=== PATIENT | female | born 1970 | race Two or more races ===

== ENCOUNTER 2020-10-14 18:22 | Observation (INO) | payer OTHER ==
[2020-10-14 18:45] VITALS: BMI 31.6
[2020-10-14 20:41] LABS: HEMATOCRIT 36.5 % (32.4-45.2); MCH 28.8 pg (25.7-33.7); MCHC 32.8 g/dl (32.0-36.0); MEAN CELL VOLUME 87.7 fl (80-96); MEAN PLT VOLUME 11.1 fl (7.5-11.1); PLATELET COUNT 173 K/MM3 (134-434); RBC 4.16 M/mm3 (3.60-5.2); RDW 13.1 % (11.6-15.6); WHITE BLOOD COUNT 6.7 K/mm3 (4.0-10.0)
[2020-10-14 21:07] LABS: CHLORIDE 105 mmol/L (98-107); POTASSIUM 3.8 mmol/L (3.5-5.1); SODIUM 140 mmol/L (136-145)
[2020-10-14 21:09] LABS: ALBUMIN 3.5 g/dl (3.4-5.0); ANION GAP 8 MMOL/L (8-16); BLOOD UREA NITROGEN 11.3 mg/dL (7-18); CALCIUM 9.2 mg/dL (8.5-10.1); CO2 27 mmol/L (21-32); GLUCOSE,RANDOM 92 mg/dL (74-106); MAGNESIUM 2.4 mg/dL (1.8-2.4)
[2020-10-14 21:12] LABS: CREATININE 0.6 mg/dL (0.55-1.3); SGOT/AST 17 U/L (15-37); SGPT/ALT 31 U/L (13-61)
[2020-10-14 21:14] LABS: BILIRUBIN,TOTAL 0.5 mg/dL (0.2-1); TOT PROT 7.1 g/dl (6.4-8.2)
[2020-10-14 21:15] LABS: ALK PHOS 125 U/L (45-117)
[2020-10-15 07:20] LABS: HEMATOCRIT 37.5 % (32.4-45.2); HEMOGLOBIN 12.6 GM/dL (10.7-15.3); MCH 29.5 pg (25.7-33.7); MCHC 33.6 g/dl (32.0-36.0); MEAN CELL VOLUME 87.8 fl (80-96); MEAN PLT VOLUME 11.5 fl (7.5-11.1); PLATELET COUNT 183 K/MM3 (134-434); RBC 4.27 M/mm3 (3.60-5.2); RDW 13.2 % (11.6-15.6); WHITE BLOOD COUNT 7.6 K/mm3 (4.0-10.0)
[2020-10-15 07:39] LABS: CHLORIDE 105 mmol/L (98-107); POTASSIUM 3.7 mmol/L (3.5-5.1); SODIUM 140 mmol/L (136-145)
[2020-10-15 07:45] LABS: ANION GAP 8 MMOL/L (8-16); BLOOD UREA NITROGEN 10.6 mg/dL (7-18); CALCIUM 8.7 mg/dL (8.5-10.1); CO2 27 mmol/L (21-32)
[2020-10-15 07:46] LABS: GLUCOSE,RANDOM 78 mg/dL (74-106); MAGNESIUM 2.4 mg/dL (1.8-2.4)
[2020-10-15 07:48] LABS: CREATININE 0.5 mg/dL (0.55-1.3)
[2020-10-15 08:04] LABS: LDL CHOLESTEROL (ONLY SJRH) 87 mg/dL (5-100)
[2020-10-15 08:05] LABS: CHOLESTEROL 196 mg/dL (50-200); HDL CHOLESTEROL 83 mg/dL (40-60)
[2020-10-15 08:06] LABS: TRIGLYCERIDES 99 mg/dL (0-150)
[2020-10-15] MEDS ORDERED: ASPIRIN COATED 81 MG TABLET.EC ONE (10:58)
[2020-10-15] MEDS: ASPIRIN COATED 81 MG TABLET.EC PO SCH (12:20)
[2020-10-15] MEDS ORDERED: ATORVASTATIN CA 20 MG TABLET (FP) PO SCH (22:00)
[2020-10-16] MEDS ORDERED: REGADENOSON 0.4 MG/5 ML PRE-FILLED SYRINGE IVPUSH ONE ×2 (09:30→10:49)
[2020-10-16 11:11] VITALS: BP 124/63; PULSE 59; TEMP 98.1
[2020-10-16] MEDS: ASPIRIN COATED 81 MG TABLET.EC PO SCH (13:39)
== END 2020-10-16 14:20 | disposition home or self-care (01) ==
LOC: JER 18:22 → INTOOBSV 21:04 → JERBED 21:04 → UNDOADMOB 21:04 → JERBED 22:51 → J4W 10-15 20:22 → JERBED 10-15 20:22 → J4W 10-15 20:22
PROVIDERS: ADMIT Hospitalist; ATTEND Family Medicine
PROC: 3E033GC Introduction of Other Therapeutic Substance into Peripheral Vein, Percutaneous Approach (ICD-10-PCS; principal; 2020-10-14)
DX: R55 Syncope and collapse (principal); R07.9 Chest pain, unspecified; E78.5 Hyperlipidemia, unspecified; K21.9 Gastro-esophageal reflux disease without esophagitis; J45.909 Unspecified asthma, uncomplicated; W18.39XA Other fall on same level, initial encounter; Y93.89 Activity, other specified; Y92.89 Other specified places as the place of occurrence of the external cause; S09.90XA Unspecified injury of head, initial encounter; E66.8 Other obesity; Z68.31 Body mass index [BMI] 31.0-31.9, adult; Z86.73 Personal history of transient ischemic attack (TIA), and cerebral infarction without residual deficits; I25.10 Atherosclerotic heart disease of native coronary artery without angina pectoris; I11.9 Hypertensive heart disease without heart failure
CPT/HCPCS: 36415; 70450-TC; 71046-TC-FY; 72125-TC; 78452-TC; 80048; 80053; 80061; 82550; 82553; 83721; 83735; 84443; 84484; 84703; 85027; 85379; 93005; 93010; 93017; 93306-TC; 93880-TC; 99285-25; A9502; C9803; G0378; J2785; U0003

== ENCOUNTER 2020-10-28 19:14 | Emergency (ER) | payer OTHER ==
[2020-10-28 19:19] VITALS: TEMP 98.1; BMI 31.3
[2020-10-28 21:12] LABS: URINE APPEARANCE CLEAR; URINE BILIRUBIN NEGATIVE (NEGATIVE); URINE COLOR YELLOW; URINE GLUCOSE (UA) NEGATIVE (NEGATIVE); URINE KETONE NEGATIVE (NEGATIVE); URINE LEUK ESTERASE NEGATIVE (NEGATIVE); URINE NITRITE NEGATIVE (NEGATIVE); URINE PROTEIN NEGATIVE (NEGATIVE); URINE UROBILINOGEN 0.2 mg/dL (0.2-1.0)
[2020-10-28 21:21] LABS: BASO % 0.4 % (0-2.0); EOS % 1.5 % (0-4.5); HEMATOCRIT 36.3 % (32.4-45.2); HEMOGLOBIN 12.2 GM/dL (10.7-15.3); LYMPH % 26.2 % (8-40); MCH 29.4 pg (25.7-33.7); MCHC 33.7 g/dl (32.0-36.0); MEAN CELL VOLUME 87.3 fl (80-96); MEAN PLT VOLUME 11.5 fl (7.5-11.1); MONO % 6.5 % (3.8-10.2); NEUT % 65.4 % (42.8-82.8); PLATELET COUNT 179 K/MM3 (134-434); RBC 4.16 M/mm3 (3.60-5.2); RDW 13.2 % (11.6-15.6); WHITE BLOOD COUNT 6.9 K/mm3 (4.0-10.0)
[2020-10-28 21:51] LABS: CHLORIDE 104 mmol/L (98-107); SODIUM 138 mmol/L (136-145)
[2020-10-28 21:53] LABS: ALBUMIN 3.7 g/dl (3.4-5.0)
[2020-10-28 21:55] LABS: ANION GAP 4 MMOL/L (8-16); BLOOD UREA NITROGEN 12.5 mg/dL (7-18); CO2 29 mmol/L (21-32); GLUCOSE,RANDOM 97 mg/dL (74-106)
[2020-10-28 21:57] LABS: CREATININE 0.7 mg/dL (0.55-1.3); SGOT/AST 18 U/L (15-37); SGPT/ALT 28 U/L (13-61)
[2020-10-28 21:58] LABS: BILIRUBIN,TOTAL 0.5 mg/dL (0.2-1); TOT PROT 7.4 g/dl (6.4-8.2)
[2020-10-28 21:59] LABS: ALK PHOS 122 U/L (45-117)
[2020-10-28 22:30] VITALS: BP 128/81; PULSE 66
== END 2020-10-28 22:35 | disposition home or self-care (01) ==
LOC: JER 19:14
DX: I10 Essential (primary) hypertension (principal)
CPT/HCPCS: 36415; 70450-TC; 80053; 81003; 84484; 84703; 85025; 93005; 93010; 99285-25

== ENCOUNTER 2020-11-15 11:44 | Observation (INO) | payer OTHER ==
[2020-11-15 12:08] VITALS: BMI 31.9
[2020-11-15 12:39] LABS: BASO % 0.3 % (0-2.0); EOS % 1.7 % (0-4.5); HEMATOCRIT 36.6 % (32.4-45.2); HEMOGLOBIN 12.3 GM/dL (10.7-15.3); LYMPH % 24.8 % (8-40); MCH 29.5 pg (25.7-33.7); MCHC 33.6 g/dl (32.0-36.0); MEAN CELL VOLUME 87.8 fl (80-96); MEAN PLT VOLUME 11.3 fl (7.5-11.1); MONO % 6.9 % (3.8-10.2); NEUT % 66.3 % (42.8-82.8); PLATELET COUNT 168 K/MM3 (134-434); RBC 4.17 M/mm3 (3.60-5.2); RDW 13.2 % (11.6-15.6); WHITE BLOOD COUNT 6.6 K/mm3 (4.0-10.0)
[2020-11-15 12:53] LABS: INR 1.05 (0.83-1.09); PROTHROMBIN TIME (PATIENT) 12.7 SEC (9.7-13.0)
[2020-11-15 12:56] LABS: ACTIVATED PTT 32.7 SECONDS (25.2-36.5); CHLORIDE 104 mmol/L (98-107); POTASSIUM 3.6 mmol/L (3.5-5.1); SODIUM 137 mmol/L (136-145)
[2020-11-15 12:58] LABS: ALBUMIN 3.6 g/dl (3.4-5.0); CALCIUM 9.1 mg/dL (8.5-10.1)
[2020-11-15 12:59] LABS: ANION GAP 7 MMOL/L (8-16); BLOOD UREA NITROGEN 15.6 mg/dL (7-18); CO2 27 mmol/L (21-32); GLUCOSE,RANDOM 87 mg/dL (74-106); MAGNESIUM 2.3 mg/dL (1.8-2.4)
[2020-11-15 13:02] LABS: CREATININE 0.6 mg/dL (0.55-1.3); PHOSPHOROUS 3.6 mg/dL (2.5-4.9); SGOT/AST 24 U/L (15-37); SGPT/ALT 40 U/L (13-61)
[2020-11-15 13:03] LABS: BILIRUBIN,TOTAL 0.8 mg/dL (0.2-1); TOT PROT 7.4 g/dl (6.4-8.2)
[2020-11-15 13:04] LABS: ALK PHOS 126 U/L (45-117)
[2020-11-15] MEDS ORDERED: ACETAMINOPHEN 325 MG TABLET (FP) PO PRN (16:54)
[2020-11-15] MEDS ORDERED: ATORVASTATIN CA 40 MG TABLET (FP) PO SCH (22:00)
[2020-11-15] MEDS ORDERED: HEPARIN NA (PORCINE) 5,000 UNITS/ML 1ML VIAL ONE (22:00)
[2020-11-15] MEDS ORDERED: ATORVASTATIN CA 40 MG TABLET (FP) ONE (22:00)
[2020-11-15] MEDS: HEPARIN NA (PORCINE) 5,000 UNITS/ML 1ML VIAL SQ SCH (22:07)
[2020-11-16 06:31] LABS: HEMATOCRIT 38.1 % (32.4-45.2); HEMOGLOBIN 13.1 GM/dL (10.7-15.3); MCH 29.8 pg (25.7-33.7); MCHC 34.2 g/dl (32.0-36.0); MEAN CELL VOLUME 87.2 fl (80-96); PLATELET COUNT 172 K/MM3 (134-434); RBC 4.38 M/mm3 (3.60-5.2); RDW 13.1 % (11.6-15.6); WHITE BLOOD COUNT 7.4 K/mm3 (4.0-10.0)
[2020-11-16 06:53] LABS: ALBUMIN 3.5 g/dl (3.4-5.0); BLOOD UREA NITROGEN 15.5 mg/dL (7-18); CALCIUM 9.3 mg/dL (8.5-10.1)
[2020-11-16 06:56] LABS: CREATININE 0.7 mg/dL (0.55-1.3)
[2020-11-16 06:57] LABS: BILIRUBIN,TOTAL 0.7 mg/dL (0.2-1); TOT PROT 7.4 g/dl (6.4-8.2)
[2020-11-16 07:23] VITALS: TEMP 96.7
[2020-11-16] MEDS ORDERED: RAMIPRIL 2.5 MG CAPSULE PO SCH (10:00)
[2020-11-16] MEDS ORDERED: metoPROLOL SUCCINATE 25 MG TAB.SR.24H (FP) PO SCH (10:00)
[2020-11-16] MEDS ORDERED: PANTOPRAZOLE 40 MG TABLET PO SCH (10:00)
[2020-11-16] MEDS ORDERED: ASPIRIN 81 MG CHEWABLE TABLETS PO SCH (10:00)
[2020-11-16] MEDS ORDERED: metoPROLOL SUCCINATE 25 MG TAB.SR.24H (FP) ONE (10:34)
[2020-11-16] MEDS ORDERED: ASPIRIN 81 MG CHEWABLE TABLETS ONE (10:34)
[2020-11-16] MEDS ORDERED: PANTOPRAZOLE 40 MG TABLET ONE (10:34)
[2020-11-16] MEDS ORDERED: HEPARIN NA (PORCINE) 5,000 UNITS/ML 1ML VIAL ONE (10:35)
[2020-11-16] MEDS: HEPARIN NA (PORCINE) 5,000 UNITS/ML 1ML VIAL SQ SCH (11:00)
[2020-11-16 11:10] VITALS: PULSE 67
[2020-11-16 15:30] VITALS: BP 122/69
== END 2020-11-16 15:35 | disposition home or self-care (01) ==
LOC: JER 11:44 → JERBED 14:18
PROVIDERS: ADMIT Family Medicine; ATTEND Family Medicine
PROC: 3E023GC Introduction of Other Therapeutic Substance into Muscle, Percutaneous Approach (ICD-10-PCS; principal; 2020-11-15)
DX: G45.9 Transient cerebral ischemic attack, unspecified (principal); I25.10 Atherosclerotic heart disease of native coronary artery without angina pectoris; R07.9 Chest pain, unspecified; E66.9 Obesity, unspecified; Z68.32 Body mass index [BMI] 32.0-32.9, adult; E78.5 Hyperlipidemia, unspecified; K21.9 Gastro-esophageal reflux disease without esophagitis; I11.9 Hypertensive heart disease without heart failure; Z86.73 Personal history of transient ischemic attack (TIA), and cerebral infarction without residual deficits; Z82.49 Family history of ischemic heart disease and other diseases of the circulatory system
CPT/HCPCS: 36415; 70450-TC; 70551-TC; 71045-TC-FY; 80053; 80061; 82550; 82553; 83036; 83721; 83735; 84100; 84443; 84484; 85025; 85027; 85610; 85730; 93005; 93010; 93880-TC; 99285-25; C9803; G0378; J1644; U0003; U0005

== ENCOUNTER 2020-11-30 23:39 | Emergency (ER) | payer OTHER ==
[2020-12-01 00:17] VITALS: BMI 32.3
[2020-12-01] MEDS ORDERED: MAG HYDROX/AL HYDROX/SIMETH 30 ML UNIT-DOSE CUP PO ONE (00:30)
[2020-12-01] MEDS ORDERED: FAMOTIDINE 20 MG TABLET PO ONE (00:31)
[2020-12-01] MEDS ORDERED: NYSTATIN POWDER 100,000 UNITS/GM - 15 GM TOPICAL POWDER TP ONE (00:36)
[2020-12-01] MEDS ORDERED: FAMOTIDINE 20 MG TABLET ONE (00:55)
[2020-12-01] MEDS ORDERED: MAG HYDROX/AL HYDROX/SIMETH 30 ML UNIT-DOSE CUP ONE (00:55)
[2020-12-01 01:16] LABS: BASO % 0.2 % (0-2.0); EOS % 1.6 % (0-4.5); HEMATOCRIT 34.8 % (32.4-45.2); HEMOGLOBIN 11.5 GM/dL (10.7-15.3); LYMPH % 33.3 % (8-40); MCH 28.8 pg (25.7-33.7); MEAN CELL VOLUME 87.2 fl (80-96); MEAN PLT VOLUME 11.5 fl (7.5-11.1); MONO % 8.1 % (3.8-10.2); NEUT % 56.8 % (42.8-82.8); PLATELET COUNT 158 K/MM3 (134-434); RBC 3.99 M/mm3 (3.60-5.2); RDW 13.3 % (11.6-15.6); WHITE BLOOD COUNT 6.9 K/mm3 (4.0-10.0)
[2020-12-01 01:34] LABS: CHLORIDE 105 mmol/L (98-107); SODIUM 139 mmol/L (136-145)
[2020-12-01 01:36] VITALS: BP 137/87; PULSE 67; TEMP 97.6
[2020-12-01 01:36] LABS: CALCIUM 8.9 mg/dL (8.5-10.1)
[2020-12-01 01:37] LABS: ALBUMIN 3.6 g/dl (3.4-5.0); ANION GAP 6 MMOL/L (8-16); BLOOD UREA NITROGEN 13.4 mg/dL (7-18); CO2 27 mmol/L (21-32); GLUCOSE,RANDOM 90 mg/dL (74-106); MAGNESIUM 2.2 mg/dL (1.8-2.4)
[2020-12-01 01:40] LABS: CREATININE 0.6 mg/dL (0.55-1.3); PHOSPHOROUS 4.5 mg/dL (2.5-4.9); SGOT/AST 23 U/L (15-37); SGPT/ALT 33 U/L (13-61)
[2020-12-01 01:42] LABS: BILIRUBIN,TOTAL 0.7 mg/dL (0.2-1)
[2020-12-01 01:43] LABS: ALK PHOS 107 U/L (45-117)
[2020-12-01 09:04] LABS: EPI CELLS 21 /uL (0-25.1); HYALINE CASTS 1 /uL (0-3.1); URINE APPEARANCE CLEAR; URINE BACTERIA 812 /uL (0-1359); URINE BILIRUBIN NEGATIVE (NEGATIVE); URINE COLOR YELLOW; URINE GLUCOSE (UA) NEGATIVE (NEGATIVE); URINE KETONE NEGATIVE (NEGATIVE); URINE LEUK ESTERASE NEGATIVE (NEGATIVE); URINE NITRITE NEGATIVE (NEGATIVE); URINE PROTEIN NEGATIVE (NEGATIVE); URINE RBC 5 /uL (0-23.9); URINE UROBILINOGEN 0.2 mg/dL (0.2-1.0); URINE WBC 8 /uL (0-25.8)
== END 2020-12-01 05:53 | disposition home or self-care (01) ==
LOC: JER 23:39
DX: K30 Functional dyspepsia (principal)
CPT/HCPCS: 36415; 71045-TC-FY; 80053; 81003; 82550; 82553; 83735; 84100; 84484; 85025; 87086; 93005; 93010; 99285-25; C9803; U0003; U0005

== ENCOUNTER 2020-12-18 17:38 | Emergency (ER) | payer OTHER ==
[2020-12-18 18:29] VITALS: BP 152/91; PULSE 72; TEMP 98.2; BMI 31.4
[2020-12-18] MEDS ORDERED: SODIUM CHLORIDE 0.9% 500 ML INFUS.BAG IV ONE (21:21)
[2020-12-18 21:37] LABS: BASO % 0.4 % (0-2.0); EOS % 1.3 % (0-4.5); HEMOGLOBIN 12.8 GM/dL (10.7-15.3); LYMPH % 24.5 % (8-40); MCH 29.1 pg (25.7-33.7); MCHC 32.9 g/dl (32.0-36.0); MEAN CELL VOLUME 88.3 fl (80-96); MEAN PLT VOLUME 11.7 fl (7.5-11.1); MONO % 5.7 % (3.8-10.2); NEUT % 68.1 % (42.8-82.8); PLATELET COUNT 162 K/MM3 (134-434); RBC 4.42 M/mm3 (3.60-5.2); RDW 13.6 % (11.6-15.6); WHITE BLOOD COUNT 7.9 K/mm3 (4.0-10.0)
[2020-12-18 22:26] LABS: ALBUMIN 3.7 g/dl (3.4-5.0); ALK PHOS 122 U/L (45-117); ANION GAP 7 MMOL/L (8-16); BILIRUBIN,TOTAL 0.7 mg/dL (0.2-1); BLOOD UREA NITROGEN 9.2 mg/dL (7-18); CALCIUM 8.8 mg/dL (8.5-10.1); CHLORIDE 104 mmol/L (98-107); CO2 28 mmol/L (21-32); CREATININE 0.7 mg/dL (0.55-1.3); GLUCOSE,RANDOM 83 mg/dL (74-106); SGOT/AST 30 U/L (15-37); SGPT/ALT 32 U/L (13-61); SODIUM 139 mmol/L (136-145); TOT PROT 7.9 g/dl (6.4-8.2)
== END 2020-12-19 00:12 | disposition home or self-care (01) ==
LOC: JER 17:38
DX: A04.72 Enterocolitis due to Clostridium difficile, not specified as recurrent (principal)
CPT/HCPCS: 36415; 71046-TC-FY; 74177-TC; 80053; 84484; 84703; 85025; 93005; 93010; 99285-25; C9803; Q9967; U0003; U0005

== ENCOUNTER 2021-01-07 00:31 | Emergency (ER) | payer OTHER ==
[2021-01-07 00:46] VITALS: TEMP 98.6; BMI 31.1
[2021-01-07 01:51] LABS: BASO % 0.3 % (0-2.0); EOS % 1.7 % (0-4.5); HEMATOCRIT 35.5 % (32.4-45.2); HEMOGLOBIN 11.6 GM/dL (10.7-15.3); LYMPH % 30.6 % (8-40); MCH 28.9 pg (25.7-33.7); MCHC 32.8 g/dl (32.0-36.0); MEAN CELL VOLUME 88.1 fl (80-96); MEAN PLT VOLUME 11.2 fl (7.5-11.1); MONO % 7.1 % (3.8-10.2); NEUT % 60.3 % (42.8-82.8); PLATELET COUNT 159 K/MM3 (134-434); RBC 4.02 M/mm3 (3.60-5.2); RDW 13.7 % (11.6-15.6)
[2021-01-07 02:31] LABS: ALBUMIN 3.4 g/dl (3.4-5.0); BLOOD UREA NITROGEN 21.9 mg/dL (7-18); CALCIUM 8.7 mg/dL (8.5-10.1)
[2021-01-07 02:34] LABS: CREATININE 0.6 mg/dL (0.55-1.3)
[2021-01-07 02:36] LABS: BILIRUBIN,TOTAL 0.5 mg/dL (0.2-1); TOT PROT 7.1 g/dl (6.4-8.2)
[2021-01-07 03:23] VITALS: BP 124/86; PULSE 73
== END 2021-01-07 03:31 | disposition home or self-care (01) ==
LOC: JER 00:31
DX: L29.9 Pruritus, unspecified (principal)
CPT/HCPCS: 36415; 80053; 85025; 99283-25

== ENCOUNTER 2021-02-12 11:23 | Inpatient (IN) | payer OTHER ==
[2021-02-12] MEDS ORDERED: LACTATED RINGERS SOLUTION 1000 ML INFUS.BAG IV ONE (11:55)
[2021-02-12] MEDS ORDERED: ACETAMINOPHEN 1000 MG/100 ML VIAL (NON FORMULARY) IVPB ONE (11:55)
[2021-02-12] MEDS ORDERED: ACETAMINOPHEN INJECTION 100 ML IVPB ONE (12:26)
[2021-02-12 12:47] LABS: BASO % 0.3 % (0-2.0); EOS % 2.2 % (0-4.5); HEMATOCRIT 38.3 % (32.4-45.2); HEMOGLOBIN 12.7 GM/dL (10.7-15.3); LYMPH % 26.9 % (8-40); MCH 28.8 pg (25.7-33.7); MCHC 33.1 g/dl (32.0-36.0); MEAN PLT VOLUME 10.5 fl (7.5-11.1); MONO % 8.3 % (3.8-10.2); NEUT % 62.3 % (42.8-82.8); PLATELET COUNT 158 10^3/uL (134-434); RDW 13.5 % (11.6-15.6); WHITE BLOOD COUNT 6.1 K/mm3 (4.0-10.0)
[2021-02-12 12:48] LABS: URINE APPEARANCE CLEAR; URINE BILIRUBIN NEGATIVE (NEGATIVE); URINE COLOR YELLOW; URINE GLUCOSE (UA) NEGATIVE (NEGATIVE); URINE KETONE NEGATIVE (NEGATIVE); URINE LEUK ESTERASE NEGATIVE (NEGATIVE); URINE NITRITE NEGATIVE (NEGATIVE); URINE PROTEIN NEGATIVE (NEGATIVE); URINE UROBILINOGEN 0.2 mg/dL (0.2-1.0)
[2021-02-12 12:54] LABS: INR 0.93 (0.83-1.09); PROTHROMBIN TIME (PATIENT) 11.5 SEC (9.7-13.0)
[2021-02-12 12:56] LABS: ACTIVATED PTT 30.9 SECONDS (25.2-36.5)
[2021-02-12 13:15] LABS: CHLORIDE 103 mmol/L (98-107); SODIUM 136 mmol/L (136-145)
[2021-02-12 13:18] LABS: CALCIUM 8.8 mg/dL (8.5-10.1); CHOLESTEROL 241 mg/dL (50-200)
[2021-02-12 13:20] LABS: ALBUMIN 3.7 g/dl (3.4-5.0); ANION GAP 5 MMOL/L (8-16); BLOOD UREA NITROGEN 13.7 mg/dL (7-18); CO2 29 mmol/L (21-32); GLUCOSE,RANDOM 76 mg/dL (74-106); LDL CHOLESTEROL (ONLY SJRH) 108 mg/dL (5-100); TRIGLYCERIDES 110 mg/dL (0-150)
[2021-02-12 13:21] LABS: HDL CHOLESTEROL 94 mg/dL (40-60)
[2021-02-12 13:22] LABS: CREATININE 0.5 mg/dL (0.55-1.3); SGOT/AST 52 U/L (15-37); SGPT/ALT 41 U/L (13-61)
[2021-02-12 13:24] LABS: TOT PROT 8.2 g/dl (6.4-8.2)
[2021-02-12 13:26] LABS: ALK PHOS 105 U/L (45-117)
[2021-02-12] MEDS: FAMOTIDINE 20 MG TABLET PO SCH (21:30)
[2021-02-12] MEDS: ATORVASTATIN CA 40 MG TABLET (FP) PO SCH (21:30)
[2021-02-12] MEDS: HEPARIN NA (PORCINE) 5,000 UNITS/ML 1ML VIAL SQ SCH (21:30)
[2021-02-13 01:04] VITALS: BMI 31.4
[2021-02-13 08:42] LABS: BASO % 0.3 % (0-2.0); EOS % 2.6 % (0-4.5); HEMATOCRIT 40.6 % (32.4-45.2); HEMOGLOBIN 13.3 GM/dL (10.7-15.3); MCH 28.6 pg (25.7-33.7); MCHC 32.7 g/dl (32.0-36.0); MEAN CELL VOLUME 87.6 fl (80-96); MEAN PLT VOLUME 10.1 fl (7.5-11.1); MONO % 7.6 % (3.8-10.2); NEUT % 61.5 % (42.8-82.8); PLATELET COUNT 168 10^3/uL (134-434); RBC 4.63 M/mm3 (3.60-5.2); RDW 13.5 % (11.6-15.6); WHITE BLOOD COUNT 4.9 K/mm3 (4.0-10.0)
[2021-02-13 08:53] LABS: CHLORIDE 104 mmol/L (98-107); SODIUM 138 mmol/L (136-145)
[2021-02-13 08:57] LABS: ALBUMIN 3.6 g/dl (3.4-5.0); ANION GAP 7 MMOL/L (8-16); BLOOD UREA NITROGEN 15.9 mg/dL (7-18); CO2 27 mmol/L (21-32); GLUCOSE,RANDOM 83 mg/dL (74-106); MAGNESIUM 2.6 mg/dL (1.8-2.4)
[2021-02-13 08:59] LABS: SGOT/AST 21 U/L (15-37); SGPT/ALT 32 U/L (13-61)
[2021-02-13 09:00] LABS: CREATININE 0.6 mg/dL (0.55-1.3)
[2021-02-13 09:01] LABS: BILIRUBIN,TOTAL 1.2 mg/dL (0.2-1); TOT PROT 7.4 g/dl (6.4-8.2)
[2021-02-13 09:03] LABS: ALK PHOS 101 U/L (45-117)
[2021-02-13] MEDS ORDERED: PT OWN MED DRAWER 7, Y5N ONE (09:43)
[2021-02-13] MEDS: metoPROLOL SUCCINATE 25 MG TAB.SR.24H (FP) PO SCH (10:12)
[2021-02-13] MEDS: RAMIPRIL 2.5 MG CAPSULE PO SCH (10:12)
[2021-02-13] MEDS: FAMOTIDINE 20 MG TABLET PO SCH ×2 (10:12→21:25)
[2021-02-13] MEDS: ASPIRIN COATED 81 MG TABLET.EC PO SCH (10:12)
[2021-02-13] MEDS: HEPARIN NA (PORCINE) 5,000 UNITS/ML 1ML VIAL SQ SCH ×2 (10:21→21:24)
[2021-02-13] MEDS: ATORVASTATIN CA 40 MG TABLET (FP) PO SCH (21:25)
[2021-02-14 07:05] VITALS: PULSE 65
[2021-02-14] MEDS ORDERED: PT OWN MED DRAWER 7, Y5N ONE (08:54)
[2021-02-14 10:27] VITALS: BP 127/74; TEMP 98.1
[2021-02-14] MEDS: ASPIRIN COATED 81 MG TABLET.EC PO SCH (10:27)
[2021-02-14] MEDS: FAMOTIDINE 20 MG TABLET PO SCH (10:27)
[2021-02-14] MEDS: RAMIPRIL 2.5 MG CAPSULE PO SCH (10:27)
[2021-02-14] MEDS: HEPARIN NA (PORCINE) 5,000 UNITS/ML 1ML VIAL SQ SCH (10:28)
[2021-02-14] MEDS: metoPROLOL SUCCINATE 25 MG TAB.SR.24H (FP) PO SCH (10:28)
== END 2021-02-14 13:39 | disposition home or self-care (01) | DRG 305 ==
LOC: JER 11:23 → JERBED 13:34 → OBSVTOIN 19:36 → J4S 20:56
PROVIDERS: ADMIT Family Medicine; ATTEND Family Medicine
DX: I16.0 Hypertensive urgency (principal); E78.5 Hyperlipidemia, unspecified; R20.0 Anesthesia of skin
CPT/HCPCS: 36415; 70450-TC; 71045-TC-FY; 80053; 80061; 81003; 82550; 82553; 83036; 83721; 83735; 84443; 84484; 85025; 85610; 85730; 86850; 86900; 86901; 93005; 93010; 99285-25; C9803; G0378; J0131; J1644; U0003; U0005

== ENCOUNTER 2021-03-12 17:27 | Emergency (ER) | payer OTHER ==
[2021-03-12 17:37] VITALS: BP 116/70; PULSE 78; TEMP 98; BMI 31.8
== END 2021-03-12 18:40 | disposition home or self-care (01) ==
LOC: JERFT 17:27 → JER 17:27 → JERFT 18:40
DX: L23.2 Allergic contact dermatitis due to cosmetics (principal)
CPT/HCPCS: 99281-25

== ENCOUNTER 2021-05-31 16:33 | Emergency (ER) | payer OTHER ==
[2021-05-31 16:39] VITALS: BP 117/67; PULSE 70; TEMP 98.8; BMI 33.0
[2021-05-31] MEDS ORDERED: KETOROLAC TROMETHAMINE 30 MG/1 ML VIAL IM ONE (17:09)
[2021-05-31] MEDS ORDERED: KETOROLAC TROMETHAMINE 30 MG/1 ML VIAL ONE (17:18)
== END 2021-05-31 17:35 | disposition home or self-care (01) ==
LOC: JERFT 16:33 → JER 16:33 → JERFT 17:35
PROC: 3E0233Z Introduction of Anti-inflammatory into Muscle, Percutaneous Approach (ICD-10-PCS; principal; 2021-05-31)
DX: H66.91 Otitis media, unspecified, right ear (principal)
CPT/HCPCS: 99284-25

== ENCOUNTER 2021-07-31 01:19 | Emergency (ER) | payer OTHER ==
[2021-07-31 01:41] VITALS: BP 118/75; PULSE 83; TEMP 97.8; BMI 33.2
[2021-07-31] MEDS ORDERED: ACETAMINOPHEN 1000 MG/100 ML VIAL IVPB ONE (02:15)
[2021-07-31] MEDS ORDERED: ACETAMINOPHEN INJECTION 100 ML IVPB ONE (02:41)
[2021-07-31 02:59] LABS: BASO % 0.4 % (0-2.0); EOS % 2.6 % (0-4.5); HEMATOCRIT 36.5 % (32.4-45.2); HEMOGLOBIN 12.1 GM/dL (10.7-15.3); LYMPH % 33.4 % (8-40); MCH 28.8 pg (25.7-33.7); MCHC 33.1 g/dl (32.0-36.0); MEAN PLT VOLUME 10.2 fl (7.5-11.1); MONO % 8.1 % (3.8-10.2); NEUT % 55.5 % (42.8-82.8); PLATELET COUNT 160 10^3/uL (134-434); RBC 4.19 M/mm3 (3.60-5.2); RDW 13.4 % (11.6-15.6)
[2021-07-31 03:18] LABS: CHLORIDE 106 mmol/L (98-107); SODIUM 141 mmol/L (136-145)
[2021-07-31 03:19] LABS: CALCIUM 8.6 mg/dL (8.5-10.1)
[2021-07-31 03:21] LABS: ALBUMIN 3.4 g/dl (3.4-5.0); ANION GAP 5 MMOL/L (8-16); BLOOD UREA NITROGEN 21.3 mg/dL (7-18); CO2 30 mmol/L (21-32); GLUCOSE,RANDOM 112 mg/dL (74-106); LIPASE 141 U/L (73-393)
[2021-07-31 03:23] LABS: CREATININE 0.7 mg/dL (0.55-1.3); SGOT/AST 24 U/L (15-37); SGPT/ALT 25 U/L (13-61)
[2021-07-31 03:25] LABS: BILIRUBIN,TOTAL 0.7 mg/dL (0.2-1); TOT PROT 7.3 g/dl (6.4-8.2)
[2021-07-31 03:26] LABS: ALK PHOS 117 U/L (45-117)
[2021-07-31] MEDS ORDERED: FAMOTIDINE 20 MG/50 ML IVPB 20 MG/50 ML MG IVPB ONE (03:53)
[2021-07-31] MEDS ORDERED: MAG HYDROX/AL HYDROX/SIMETH 30 ML UNIT-DOSE CUP PO ONE (03:53)
[2021-07-31] MEDS ORDERED: FAMOTIDINE 20 MG TABLET ONE (04:00)
[2021-07-31] MEDS ORDERED: FAMOTIDINE 20 MG TABLET PO ONE (04:00)
[2021-07-31] MEDS ORDERED: MAG HYDROX/AL HYDROX/SIMETH 30 ML UNIT-DOSE CUP ONE ×2 (04:00→06:47)
== END 2021-07-31 05:45 | disposition home or self-care (01) ==
LOC: JER 01:19
PROC: 3E0333Z Introduction of Anti-inflammatory into Peripheral Vein, Percutaneous Approach (ICD-10-PCS; principal; 2021-07-31)
DX: R10.33 Periumbilical pain (principal); K42.9 Umbilical hernia without obstruction or gangrene
CPT/HCPCS: 36415; 74177-TC; 80053; 83690; 84484; 85025; 93005; 93010; 99285-25; J0131

== ENCOUNTER 2021-08-23 18:01 | Emergency (ER) | payer OTHER ==
[2021-08-23 18:22] VITALS: BP 146/88; PULSE 95; TEMP 97.8; BMI 33.9
[2021-08-23] MEDS ORDERED: ACETAMINOPHEN 1000 MG/100 ML BAG IVPB ONE (22:10)
[2021-08-23] MEDS ORDERED: ACETAMINOPHEN INJECTION 100 ML IVPB ONE (22:38)
[2021-08-23] MEDS ORDERED: ACETAMINOPHEN 325 MG TABLET (FP) ONE (22:39)
[2021-08-23] MEDS ORDERED: ACETAMINOPHEN 500 MG TABLET (FP) PO ONE (22:41)
[2021-08-23 22:45] LABS: BASO % 0.5 % (0-2.0); EOS % 0.4 % (0-4.5); HEMATOCRIT 37.6 % (32.4-45.2); HEMOGLOBIN 12.2 GM/dL (10.7-15.3); LYMPH % 27.2 % (8-40); MCH 28.2 pg (25.7-33.7); MCHC 32.6 g/dl (32.0-36.0); MEAN CELL VOLUME 86.5 fl (80-96); MEAN PLT VOLUME 10.7 fl (7.5-11.1); MONO % 8.1 % (3.8-10.2); NEUT % 63.8 % (42.8-82.8); PLATELET COUNT 204 10^3/uL (134-434); RBC 4.34 M/mm3 (3.60-5.2); RDW 13.3 % (11.6-15.6); WHITE BLOOD COUNT 9.5 K/mm3 (4.0-10.0)
[2021-08-24 00:11] LABS: CHLORIDE 104 mmol/L (98-107); SODIUM 138 mmol/L (136-145)
[2021-08-24 00:14] LABS: ALBUMIN 3.5 g/dl (3.4-5.0); ANION GAP 8 MMOL/L (8-16); BLOOD UREA NITROGEN 13.6 mg/dL (7-18); CO2 27 mmol/L (21-32); GLUCOSE,RANDOM 106 mg/dL (74-106)
[2021-08-24 00:17] LABS: CREATININE 0.6 mg/dL (0.55-1.3); SGOT/AST 19 U/L (15-37); SGPT/ALT 29 U/L (13-61)
[2021-08-24 00:19] LABS: BILIRUBIN,TOTAL 0.6 mg/dL (0.2-1); TOT PROT 7.8 g/dl (6.4-8.2)
[2021-08-24 00:20] LABS: ALK PHOS 109 U/L (45-117)
== END 2021-08-24 03:10 | disposition home or self-care (01) ==
LOC: JER 18:01
DX: M54.50 Low back pain, unspecified (principal)
CPT/HCPCS: 36415; 71046-TC-FY; 80053; 82550; 82553; 84484; 85025; 93005; 93010; 99285-25

== ENCOUNTER 2021-10-14 17:12 | Emergency (ER) | payer OTHER ==
[2021-10-14 17:22] VITALS: TEMP 98.7; BMI 28.7
[2021-10-14 20:42] LABS: BASO % 0.6 % (0-2.0); EOS % 1.2 % (0-4.5); LYMPH % 25.5 % (8-40); MCH 29.1 pg (25.7-33.7); MCHC 33.3 g/dl (32.0-36.0); MEAN CELL VOLUME 87.3 fl (80-96); MEAN PLT VOLUME 11.6 fl (7.5-11.1); MONO % 5.1 % (3.8-10.2); NEUT % 67.6 % (42.8-82.8); PLATELET COUNT 174 10^3/uL (134-434); RBC 4.46 M/mm3 (3.60-5.2); RDW 13.8 % (11.6-15.6)
[2021-10-14 20:52] LABS: INR 0.97 (0.83-1.09); PROTHROMBIN TIME (PATIENT) 11.1 SEC (9.7-13.0)
[2021-10-14 21:10] LABS: ALBUMIN 4.1 g/dl (3.4-5.0); BLOOD UREA NITROGEN 11.5 mg/dL (7-18)
[2021-10-14 21:12] LABS: CREATININE 0.6 mg/dL (0.55-1.3)
[2021-10-14 21:14] LABS: BILIRUBIN,TOTAL 0.8 mg/dL (0.2-1); TOT PROT 8.3 g/dl (6.4-8.2)
[2021-10-14 21:17] LABS: N-TERMINAL BNP 43.8 pg/ml (5-125)
[2021-10-14] MEDS ORDERED: MAG HYDROX/AL HYDROX/SIMETH -MYLANTA- ORAL SUSPENSION PO ONE (22:49)
[2021-10-14] MEDS ORDERED: MAG HYDROX/AL HYDROX/SIMETH 30 ML UNIT-DOSE CUP ONE (22:59)
[2021-10-15 01:47] VITALS: BP 128/78; PULSE 88
[2021-10-15 15:09] LABS: SARS-CoV-2 NAA Not Detected (Not Detected)
== END 2021-10-15 01:47 | disposition home or self-care (01) ==
LOC: JER 17:12
DX: R07.9 Chest pain, unspecified (principal)
CPT/HCPCS: 36415; 71046-TC-FY; 71275-TC; 80053; 82550; 82553; 83880; 84443; 84484; 85025; 85379; 85610; 93005; 93010; 99285-25; C9803; Q9967; U0003; U0005

== ENCOUNTER 2021-11-05 14:02 | Observation (INO) | payer OTHER ==
[2021-11-05 15:29] LABS: BASO % 0.5 % (0-2.0); EOS % 1.6 % (0-4.5); HEMATOCRIT 35.3 % (32.4-45.2); HEMOGLOBIN 11.8 GM/dL (10.7-15.3); LYMPH % 29.6 % (8-40); MCH 29.1 pg (25.7-33.7); MCHC 33.3 g/dl (32.0-36.0); MEAN CELL VOLUME 87.4 fl (80-96); MEAN PLT VOLUME 10.1 fl (7.5-11.1); MONO % 6.9 % (3.8-10.2); NEUT % 61.4 % (42.8-82.8); PLATELET COUNT 164 10^3/uL (134-434); RBC 4.04 M/mm3 (3.60-5.2); WHITE BLOOD COUNT 5.9 K/mm3 (4.0-10.0)
[2021-11-05 16:12] LABS: CALCIUM 9.1 mg/dL (8.5-10.1)
[2021-11-05 16:14] LABS: ALBUMIN 3.5 g/dl (3.4-5.0); BLOOD UREA NITROGEN 19.6 mg/dL (7-18)
[2021-11-05 16:17] LABS: CREATININE 0.7 mg/dL (0.55-1.3)
[2021-11-05 16:18] LABS: TOT PROT 7.3 g/dl (6.4-8.2)
[2021-11-05 16:19] LABS: BILIRUBIN,TOTAL 0.7 mg/dL (0.2-1)
[2021-11-05] MEDS ORDERED: FAMOTIDINE 20 MG TABLET PO ONE (20:11)
[2021-11-05] MEDS ORDERED: FAMOTIDINE 20 MG TABLET ONE (20:28)
[2021-11-05] MEDS ORDERED: ACETAMINOPHEN 325 MG TABLET (FP) PO PRN (21:47)
[2021-11-05] MEDS ORDERED: POLYETHYLENE GLYCOL (HEALTHYLAX) 3350 17 GM PACKET PO ONE (21:54)
[2021-11-05] MEDS ORDERED: ALBUTEROL SO4 HFA INHALER IH PRN (22:15)
[2021-11-06] MEDS ORDERED: ASPIRIN COATED 81 MG TABLET.EC ONE (07:31)
[2021-11-06] MEDS ORDERED: PANTOPRAZOLE 40 MG TABLET ONE (07:31)
[2021-11-06] MEDS ORDERED: amLODIPine BESYLATE 10 MG TABLET (FP) ONE (07:31)
[2021-11-06] MEDS ORDERED: SIMETHICONE 80 MG TAB.CHEW (FP) ONE ×3 (07:32→18:01)
[2021-11-06] MEDS ORDERED: metoPROLOL SUCCINATE 25 MG TAB.SR.24H (FP) ONE (07:32)
[2021-11-06] MEDS ORDERED: ENOXAPARIN NA (PORCINE) 40 MG/0.4 ML DISP.SYRIN SQ ONE (07:32)
[2021-11-06] MEDS ORDERED: METOCLOPRAMIDE HCL 10 MG TABLET (FP) PO ONE ×3 (07:34→18:01)
[2021-11-06 08:10] LABS: BASO % 0.3 % (0-2.0); EOS % 2.6 % (0-4.5); HEMATOCRIT 38.5 % (32.4-45.2); LYMPH % 28.9 % (8-40); MCH 29.3 pg (25.7-33.7); MCHC 33.9 g/dl (32.0-36.0); MEAN CELL VOLUME 86.5 fl (80-96); MEAN PLT VOLUME 10.3 fl (7.5-11.1); MONO % 7.3 % (3.8-10.2); NEUT % 60.9 % (42.8-82.8); PLATELET COUNT 167 10^3/uL (134-434); RBC 4.45 M/mm3 (3.60-5.2); RDW 13.6 % (11.6-15.6); WHITE BLOOD COUNT 5.7 K/mm3 (4.0-10.0)
[2021-11-06 08:29] LABS: CALCIUM 9.1 mg/dL (8.5-10.1)
[2021-11-06 08:31] LABS: MAGNESIUM 2.7 mg/dL (1.8-2.4)
[2021-11-06 08:34] LABS: CREATININE 0.6 mg/dL (0.55-1.3)
[2021-11-06] MEDS: METOCLOPRAMIDE HCL 10 MG TABLET (FP) PO SCH ×3 (08:34→18:04)
[2021-11-06] MEDS ORDERED: DOCUSATE SODIUM 100 MG CAPSULE (FP) PO PRN (10:00)
[2021-11-06] MEDS: ENOXAPARIN NA (PORCINE) 40 MG/0.4 ML DISP.SYRIN SQ SCH (10:09)
[2021-11-06] MEDS: SIMETHICONE 80 MG TAB.CHEW (FP) PO SCH ×4 (10:09→22:11)
[2021-11-06] MEDS: ASPIRIN COATED 81 MG TABLET.EC PO SCH (10:09)
[2021-11-06] MEDS: PANTOPRAZOLE 40 MG TABLET PO SCH (10:10)
[2021-11-06] MEDS: amLODIPine BESYLATE 10 MG TABLET (FP) PO SCH (10:10)
[2021-11-06] MEDS: metoPROLOL SUCCINATE 25 MG TAB.SR.24H (FP) PO SCH (10:10)
[2021-11-06] MEDS: EZETIMIBE 10 MG TABLET (FP) PO SCH (10:11)
[2021-11-06 20:15] VITALS: BMI 32.8
[2021-11-06] MEDS ORDERED: POLYETHYLENE GLYCOL (HEALTHYLAX) 3350 17 GM PACKET PO PRN (20:44)
[2021-11-06] MEDS ORDERED: SENNOSIDES 8.6MG TABLET (FP) PO PRN (20:44)
[2021-11-06] MEDS: PATIENT'S OWN MEDICATION (NON-FORMULARY) (Plecanatide [Trulance] 3 MG Tablet) PO SCH (22:10)
[2021-11-07] MEDS: METOCLOPRAMIDE HCL 10 MG TABLET (FP) PO SCH ×3 (06:12→17:29)
[2021-11-07 07:35] LABS: CHOLESTEROL 176 mg/dL (50-200); TRIGLYCERIDES 109 mg/dL (0-150)
[2021-11-07 07:36] LABS: LDL CHOLESTEROL (ONLY SJRH) 84 mg/dL (5-100)
[2021-11-07 07:38] LABS: HDL CHOLESTEROL 77 mg/dL (40-60)
[2021-11-07] MEDS: SIMETHICONE 80 MG TAB.CHEW (FP) PO SCH (10:50)
[2021-11-07] MEDS: PANTOPRAZOLE 40 MG TABLET PO SCH (10:50)
[2021-11-07] MEDS: ASPIRIN COATED 81 MG TABLET.EC PO SCH (10:50)
[2021-11-07] MEDS: EZETIMIBE 10 MG TABLET (FP) PO SCH (10:50)
[2021-11-07] MEDS: amLODIPine BESYLATE 10 MG TABLET (FP) PO SCH (10:51)
[2021-11-07] MEDS: metoPROLOL SUCCINATE 25 MG TAB.SR.24H (FP) PO SCH ×2 (10:51→11:00)
[2021-11-07] MEDS: PATIENT'S OWN MEDICATION (NON-FORMULARY) (Plecanatide [Trulance] 3 MG Tablet) PO SCH (10:53)
[2021-11-07] MEDS: ENOXAPARIN NA (PORCINE) 40 MG/0.4 ML DISP.SYRIN SQ SCH (10:53)
[2021-11-08] MEDS: METOCLOPRAMIDE HCL 10 MG TABLET (FP) PO SCH ×2 (06:18→12:49)
[2021-11-08] MEDS: amLODIPine BESYLATE 10 MG TABLET (FP) PO SCH ×2 (08:20→12:18)
[2021-11-08] MEDS: metoPROLOL SUCCINATE 25 MG TAB.SR.24H (FP) PO SCH (12:19)
[2021-11-08] MEDS: ASPIRIN COATED 81 MG TABLET.EC PO SCH (12:49)
[2021-11-08] MEDS: ENOXAPARIN NA (PORCINE) 40 MG/0.4 ML DISP.SYRIN SQ SCH (12:49)
[2021-11-08] MEDS: EZETIMIBE 10 MG TABLET (FP) PO SCH (12:51)
[2021-11-08] MEDS: PATIENT'S OWN MEDICATION (NON-FORMULARY) (Plecanatide [Trulance] 3 MG Tablet) PO SCH (12:51)
[2021-11-08 14:50] VITALS: BP 115/81; PULSE 82; TEMP 97.9
[2021-11-08] MEDS ORDERED: ATORVASTATIN CA 40 MG TABLET (FP) PO SCH (22:00)
== END 2021-11-08 18:29 | disposition home or self-care (01) ==
LOC: JER 14:02 → JERBED 19:16 → UNDOADMOB 19:16 → JERBED 11-06 18:54 → J4W 11-06 18:54 → OBSVTOIN 11-07 13:12 → INTOOBSV 11-07 13:12 → J4W 11-08 10:39 → JERBED 11-08 10:39
PROVIDERS: ADMIT Hospitalist; ATTEND Family Medicine
PROC: 3E023GC Introduction of Other Therapeutic Substance into Muscle, Percutaneous Approach (ICD-10-PCS; principal; 2021-11-08)
DX: R07.9 Chest pain, unspecified (principal); R00.2 Palpitations; K59.00 Constipation, unspecified; R06.02 Shortness of breath; R55 Syncope and collapse; Z86.39 Personal history of other endocrine, nutritional and metabolic disease; U09.9 Post COVID-19 condition, unspecified; E78.5 Hyperlipidemia, unspecified; I16.0 Hypertensive urgency; M54.9 Dorsalgia, unspecified; K21.9 Gastro-esophageal reflux disease without esophagitis; E66.8 Other obesity; Z86.79 Personal history of other diseases of the circulatory system; Z68.32 Body mass index [BMI] 32.0-32.9, adult
CPT/HCPCS: 36415; 71045-TC-FY; 78452-TC; 80048; 80053; 80061; 83735; 84443; 84484; 84703; 85025; 85379; 93005; 93010; 93017; 93306-TC; 99285-25; A9502; C9803-CS; G0378; U0003; U0005

== ENCOUNTER 2022-01-29 19:31 | Emergency (ER) | payer OTHER ==
[2022-01-29 20:11] VITALS: BP 122/79; PULSE 69; TEMP 98.2; BMI 30.9
[2022-01-29 21:34] LABS: EPI CELLS 16 /uL (0-25.1); HYALINE CASTS 1 /uL (0-3.1); PH,URINE 5.5 (5.0-8.0); URINE APPEARANCE CLEAR; URINE BACTERIA 628 /uL (0-1359); URINE BILIRUBIN NEGATIVE (NEGATIVE); URINE COLOR YELLOW; URINE GLUCOSE (UA) NEGATIVE (NEGATIVE); URINE KETONE NEGATIVE (NEGATIVE); URINE LEUK ESTERASE 2+ (NEGATIVE); URINE NITRITE NEGATIVE (NEGATIVE); URINE PROTEIN NEGATIVE (NEGATIVE); URINE RBC 4 /uL (0-23.9); URINE WBC 61 /uL (0-25.8)
[2022-01-29] MEDS ORDERED: FLUCONAZOLE 150 MG TABLET PO ONE ×2 (21:41→21:42)
[2022-01-29 21:44] LABS: HCG,QUALITATIVE URINE Negative
== END 2022-01-29 22:12 | disposition home or self-care (01) ==
LOC: JERFT 19:31
DX: B37.3 Candidiasis of vulva and vagina (principal)
CPT/HCPCS: 36415; 81003; 84703; 87070; 87077; 87086; 87205; 87491; 87591; 99283-25

== ENCOUNTER 2022-02-02 23:38 | Emergency (ER) | payer OTHER ==
[2022-02-02 23:51] VITALS: BP 137/87; PULSE 60; TEMP 98.1; BMI 32.4
[2022-02-03] MEDS ORDERED: MAG HYDROX/AL HYDROX/SIMETH -MYLANTA- ORAL SUSPENSION PO ONE ×2 (00:47→01:59)
[2022-02-03] MEDS ORDERED: ONDANSETRON 4 MG/2 ML VIAL IVPUSH ONE (00:47)
[2022-02-03] MEDS ORDERED: ACETAMINOPHEN 1000 MG/100 ML BAG IVPB ONE (00:47)
[2022-02-03] MEDS ORDERED: FAMOTIDINE 20 MG/50 ML IVPB 20 MG/50 ML MG IVPB ONE (00:47)
[2022-02-03] MEDS ORDERED: FAMOTIDINE 10 MG/ML VIAL IVPB ONE (01:01)
[2022-02-03] MEDS ORDERED: MAG HYDROX/AL HYDROX/SIMETH 30 ML UNIT-DOSE CUP ONE ×2 (01:01→02:10)
[2022-02-03] MEDS ORDERED: ONDANSETRON 4 MG/2 ML VIAL ONE (01:01)
[2022-02-03 01:05] LABS: BASO % 0.4 % (0-2.0); EOS % 1.8 % (0-4.5); HEMATOCRIT 33.2 % (32.4-45.2); LYMPH % 29.5 % (8-40); MCH 28.6 pg (25.7-33.7); MCHC 33.2 g/dl (32.0-36.0); MEAN CELL VOLUME 86.3 fl (80-96); MEAN PLT VOLUME 10.9 fl (7.5-11.1); MONO % 6.9 % (3.8-10.2); NEUT % 61.4 % (42.8-82.8); PLATELET COUNT 163 10^3/uL (134-434); RBC 3.85 M/mm3 (3.60-5.2); RDW 13.1 % (11.6-15.6)
[2022-02-03 01:32] LABS: ALBUMIN 3.1 g/dl (3.4-5.0); CALCIUM 8.8 mg/dL (8.5-10.1)
[2022-02-03 01:33] LABS: BLOOD UREA NITROGEN 14.4 mg/dL (7-18)
[2022-02-03 01:36] LABS: CREATININE 0.7 mg/dL (0.55-1.3)
[2022-02-03 01:37] LABS: BILIRUBIN,TOTAL 0.5 mg/dL (0.2-1); TOT PROT 6.9 g/dl (6.4-8.2)
== END 2022-02-03 02:15 | disposition home or self-care (01) ==
LOC: JER 23:38
PROC: 3E033GC Introduction of Other Therapeutic Substance into Peripheral Vein, Percutaneous Approach (ICD-10-PCS; principal; 2022-02-02)
DX: R10.11 Right upper quadrant pain (principal)
CPT/HCPCS: 36415; 80053; 85025; 99284-25

== ENCOUNTER 2022-03-04 00:39 | Emergency (ER) | payer OTHER ==
[2022-03-04 01:36] VITALS: BP 139/79; PULSE 63; TEMP 97.8; BMI 31.6
[2022-03-04 03:58] LABS: BASO % 0.3 % (0-2.0); EOS % 1.3 % (0-4.5); HEMATOCRIT 39.2 % (32.4-45.2); LYMPH % 25.8 % (8-40); MCH 28.6 pg (25.7-33.7); MCHC 33.2 g/dl (32.0-36.0); MEAN PLT VOLUME 10.9 fl (7.5-11.1); MONO % 5.3 % (3.8-10.2); NEUT % 67.3 % (42.8-82.8); PLATELET COUNT 163 10^3/uL (134-434); RBC 4.56 M/mm3 (3.60-5.2); RDW 13.4 % (11.6-15.6); WHITE BLOOD COUNT 7.8 K/mm3 (4.0-10.0)
[2022-03-04] MEDS ORDERED: FAMOTIDINE 10 MG TABLET PO ONE (04:11)
[2022-03-04] MEDS ORDERED: SUCRALFATE 1 GM TABLET (FP) PO ONE (04:11)
[2022-03-04] MEDS ORDERED: MAG HYDROX/AL HYDROX/SIMETH 30 ML UNIT-DOSE CUP PO ONE (04:11)
[2022-03-04] MEDS ORDERED: FAMOTIDINE 20 MG TABLET ONE (04:19)
[2022-03-04] MEDS ORDERED: MAG HYDROX/AL HYDROX/SIMETH 30 ML UNIT-DOSE CUP ONE (04:19)
[2022-03-04] MEDS ORDERED: SUCRALFATE 1 GM TABLET (FP) ONE (04:19)
[2022-03-04 04:43] LABS: BILIRUBIN,TOTAL 0.8 mg/dL (0.2-1); BLOOD UREA NITROGEN 15.7 mg/dL (7-18); CALCIUM 9.4 mg/dL (8.5-10.1); CREATININE 0.6 mg/dL (0.55-1.3); TOT PROT 8.5 g/dl (6.4-8.2)
[2022-03-04 05:22] LABS: HIV INTERPRETATION NEGATIVE (NEGATIVE)
== END 2022-03-04 05:18 | disposition home or self-care (01) ==
LOC: JER 00:39
DX: R68.83 Chills (without fever) (principal); B37.0 Candidal stomatitis
CPT/HCPCS: 36415; 71046-TC-FY; 80053; 84443; 85025; 87389; 93005; 93010; 99285-25

== ENCOUNTER 2022-04-08 13:07 | Emergency (ER) | payer OTHER ==
[2022-04-08 13:21] VITALS: TEMP 97; BMI 31.1
[2022-04-08] MEDS ORDERED: ACETAMINOPHEN 500 MG TABLET (FP) PO ONE (13:32)
[2022-04-08] MEDS ORDERED: SODIUM CHLORIDE 1,000 ML IV STA (13:32)
[2022-04-08] MEDS ORDERED: ACETAMINOPHEN 325 MG TABLET (FP) ONE (14:35)
[2022-04-08 14:46] LABS: BASO % 0.4 % (0-2.0); EOS % 0.6 % (0-4.5); HEMATOCRIT 36.8 % (32.4-45.2); HEMOGLOBIN 12.4 GM/dL (10.7-15.3); LYMPH % 31.4 % (8-40); MCHC 33.6 g/dl (32.0-36.0); MEAN CELL VOLUME 86.2 fl (80-96); MEAN PLT VOLUME 10.6 fl (7.5-11.1); MONO % 6.4 % (3.8-10.2); NEUT % 61.2 % (42.8-82.8); PLATELET COUNT 162 10^3/uL (134-434); RBC 4.27 M/mm3 (3.60-5.2); RDW 13.7 % (11.6-15.6); WHITE BLOOD COUNT 6.7 K/mm3 (4.0-10.0)
[2022-04-08 15:11] LABS: BLOOD UREA NITROGEN 14.2 mg/dL (7-18)
[2022-04-08 15:12] LABS: ALBUMIN 3.4 g/dl (3.4-5.0)
[2022-04-08 15:15] LABS: CREATININE 0.8 mg/dL (0.55-1.3)
[2022-04-08 15:16] LABS: BILIRUBIN,TOTAL 0.7 mg/dL (0.2-1); TOT PROT 7.4 g/dl (6.4-8.2)
[2022-04-08 15:59] LABS: EPI CELLS >36 /uL (0-25.1); HYALINE CASTS 3 /uL (0-3.1); PH,URINE 5.5 (5.0-8.0); URINE APPEARANCE CLEAR; URINE BACTERIA 1267 /uL (0-1359); URINE BILIRUBIN NEGATIVE (NEGATIVE); URINE COLOR YELLOW; URINE GLUCOSE (UA) NEGATIVE (NEGATIVE); URINE KETONE TRACE (NEGATIVE); URINE LEUK ESTERASE TRACE (NEGATIVE); URINE NITRITE NEGATIVE (NEGATIVE); URINE PROTEIN TRACE (NEGATIVE); URINE RBC 11 /uL (0-23.9); URINE UROBILINOGEN 0.2 mg/dL (0.2-1.0); URINE WBC 18 /uL (0-25.8)
[2022-04-08 16:00] LABS: HCG,QUALITATIVE URINE Negative
[2022-04-08] MEDS ORDERED: KETOROLAC TROMETHAMINE 30 MG/1 ML VIAL IVPUSH ONE (16:10)
[2022-04-08] MEDS ORDERED: KETOROLAC TROMETHAMINE 30 MG/1 ML VIAL ONE (16:15)
[2022-04-08 17:38] VITALS: BP 110/80; PULSE 85; RESP 20
== END 2022-04-08 17:37 | disposition home or self-care (01) ==
LOC: JER 13:07
PROC: 3E0233Z Introduction of Anti-inflammatory into Muscle, Percutaneous Approach (ICD-10-PCS; principal; 2022-04-08)
PROC: 3E0337Z Introduction of Electrolytic and Water Balance Substance into Peripheral Vein, Percutaneous Approach (ICD-10-PCS; 2022-04-08)
DX: N12 Tubulo-interstitial nephritis, not specified as acute or chronic (principal)
CPT/HCPCS: 0241U-QW; 36415; 80053; 81003; 84703; 85025; 87086; 99284-25

== ENCOUNTER 2022-04-26 23:29 | Emergency (ER) | payer OTHER ==
[2022-04-26 23:40] VITALS: BP 132/83; PULSE 70; RESP 18; TEMP 97.7; BMI 31.4
[2022-04-27 00:26] LABS: EPI CELLS 10 /uL (0-25.1); HYALINE CASTS 0 /uL (0-3.1); PH,URINE 6.5 (5.0-8.0); URINE APPEARANCE CLEAR; URINE BACTERIA 36 /uL (0-1359); URINE BILIRUBIN NEGATIVE (NEGATIVE); URINE COLOR YELLOW; URINE GLUCOSE (UA) NEGATIVE (NEGATIVE); URINE KETONE NEGATIVE (NEGATIVE); URINE LEUK ESTERASE TRACE (NEGATIVE); URINE NITRITE NEGATIVE (NEGATIVE); URINE PROTEIN NEGATIVE (NEGATIVE); URINE RBC 6 /uL (0-23.9); URINE UROBILINOGEN 0.2 mg/dL (0.2-1.0); URINE WBC 17 /uL (0-25.8)
[2022-04-27] MEDS ORDERED: CYCLOBENZAPRINE HCL 10 MG TABLET (FP) PO ONE (00:42)
[2022-04-27] MEDS ORDERED: KETOROLAC TROMETHAMINE 30 MG/1 ML VIAL IM ONE (00:42)
[2022-04-27] MEDS ORDERED: KETOROLAC TROMETHAMINE 30 MG/1 ML VIAL ONE (01:16)
[2022-04-27] MEDS ORDERED: CYCLOBENZAPRINE HCL 10 MG TABLET (FP) ONE (01:16)
== END 2022-04-27 01:33 | disposition home or self-care (01) ==
LOC: JER 23:29
PROC: 3E023GC Introduction of Other Therapeutic Substance into Muscle, Percutaneous Approach (ICD-10-PCS; principal; 2022-04-27)
DX: M54.50 Low back pain, unspecified (principal)
CPT/HCPCS: 81003; 87086; 99284-25

== ENCOUNTER 2022-05-20 13:38 | Emergency (ER) | payer OTHER ==
[2022-05-20 14:13] VITALS: BP 136/88; PULSE 56; RESP 18; TEMP 98; BMI 31.6
[2022-05-20] MEDS ORDERED: ACETAMINOPHEN 1000 MG/100 ML BAG IVPB ONE (15:06)
[2022-05-20] MEDS ORDERED: FAMOTIDINE 20 MG/50 ML IVPB 20 MG/50 ML MG IVPB ONE ×2 (15:06→15:37)
[2022-05-20] MEDS ORDERED: PANTOPRAZOLE SODIUM 40 MG VIAL IVPUSH ONE (15:06)
[2022-05-20] MEDS ORDERED: SODIUM CHLORIDE 0.9% 500 ML INFUS.BAG IV ONE (15:06)
[2022-05-20] MEDS ORDERED: MAG HYDROX/AL HYDROX/SIMETH 30 ML UNIT-DOSE CUP PO ONE (15:07)
[2022-05-20] MEDS ORDERED: PANTOPRAZOLE SODIUM 40 MG/100 ML BAG IVPB ONE (15:36)
[2022-05-20] MEDS ORDERED: ACETAMINOPHEN INJECTION 100 ML IVPB ONE (15:36)
[2022-05-20] MEDS ORDERED: MAG HYDROX/AL HYDROX/SIMETH 30 ML UNIT-DOSE CUP ONE (15:37)
[2022-05-20 16:23] LABS: BASO % 0.6 % (0-2.0); EOS % 1.1 % (0-4.5); HEMATOCRIT 38.5 % (32.4-45.2); HEMOGLOBIN 12.6 GM/dL (10.7-15.3); LYMPH % 30.6 % (8-40); MCH 28.5 pg (25.7-33.7); MCHC 32.8 g/dl (32.0-36.0); MEAN CELL VOLUME 86.9 fl (80-96); MEAN PLT VOLUME 10.4 fl (7.5-11.1); MONO % 5.9 % (3.8-10.2); NEUT % 61.8 % (42.8-82.8); PLATELET COUNT 186 10^3/uL (134-434); RBC 4.43 M/mm3 (3.60-5.2); RDW 13.8 % (11.6-15.6); WHITE BLOOD COUNT 6.9 K/mm3 (4.0-10.0)
[2022-05-20 16:45] LABS: CALCIUM 9.3 mg/dL (8.5-10.1)
[2022-05-20 16:46] LABS: ALBUMIN 3.7 g/dl (3.4-5.0); BLOOD UREA NITROGEN 17.3 mg/dL (7-18)
[2022-05-20 16:49] LABS: CREATININE 0.5 mg/dL (0.55-1.3)
[2022-05-20 16:51] LABS: BILIRUBIN,TOTAL 0.7 mg/dL (0.2-1); TOT PROT 7.8 g/dl (6.4-8.2)
== END 2022-05-20 17:54 | disposition home or self-care (01) ==
LOC: JER 13:38
PROC: 3E0333Z Introduction of Anti-inflammatory into Peripheral Vein, Percutaneous Approach (ICD-10-PCS; principal; 2022-05-20)
PROC: 3E033GC Introduction of Other Therapeutic Substance into Peripheral Vein, Percutaneous Approach (ICD-10-PCS; 2022-05-20)
PROC: 3E033GC Introduction of Other Therapeutic Substance into Peripheral Vein, Percutaneous Approach (ICD-10-PCS; 2022-05-20)
DX: K29.00 Acute gastritis without bleeding (principal)
CPT/HCPCS: 36415; 80053; 85025; 93005; 93010; 99284-25

== ENCOUNTER 2022-06-06 20:22 | Emergency (ER) | payer OTHER ==
[2022-06-06 20:47] VITALS: BP 163/100; PULSE 75; RESP 18; TEMP 98.4; BMI 30.7
[2022-06-06] MEDS ORDERED: METHOCARBAMOL 500 MG TABLET PO ONE (21:43)
[2022-06-06] MEDS ORDERED: ACETAMINOPHEN 500 MG TABLET (FP) PO ONE (21:43)
[2022-06-06] MEDS ORDERED: METHOCARBAMOL 500 MG TABLET ONE (21:45)
[2022-06-06] MEDS ORDERED: ACETAMINOPHEN 500 MG TABLET (FP) ONE (21:46)
== END 2022-06-06 21:55 | disposition home or self-care (01) ==
LOC: JERFT 20:22
DX: M54.50 Low back pain, unspecified (principal)
CPT/HCPCS: 99283-25

== ENCOUNTER 2022-07-06 13:04 | Emergency (ER) | payer OTHER ==
[2022-07-06 13:25] VITALS: BP 118/77; PULSE 76; RESP 18; TEMP 97.9; BMI 31.6
[2022-07-06] MEDS ORDERED: CYCLOBENZAPRINE HCL 10 MG TABLET (FP) PO ONE (13:55)
[2022-07-06] MEDS ORDERED: ACETAMINOPHEN 500 MG TABLET (FP) PO ONE (13:55)
[2022-07-06] MEDS ORDERED: IBUPROFEN 600 MG TABLET (FP) PO ONE ×2 (13:55→14:04)
[2022-07-06] MEDS ORDERED: CYCLOBENZAPRINE HCL 10 MG TABLET (FP) ONE (14:04)
[2022-07-06] MEDS ORDERED: ACETAMINOPHEN 500 MG TABLET (FP) ONE (14:05)
== END 2022-07-06 15:38 | disposition home or self-care (01) ==
LOC: JERFT 13:04
DX: M25.562 Pain in left knee (principal); W01.0XXA Fall on same level from slipping, tripping and stumbling without subsequent striking against object, initial encounter
CPT/HCPCS: 73562-TC-LT-FY; 99283-25

== ENCOUNTER 2022-08-12 13:50 | Emergency (ER) | payer OTHER ==
[2022-08-12 14:07] VITALS: BP 150/83; PULSE 67; RESP 18; TEMP 97.4; BMI 30.7
[2022-08-12] MEDS ORDERED: MAGNESIUM CITRATE 300 ML BOTTLE PO ONE (15:01)
== END 2022-08-12 16:30 | disposition home or self-care (01) ==
LOC: JER 13:50
DX: K59.00 Constipation, unspecified (principal)
CPT/HCPCS: 74018-TC-FY; 93005; 93010; 99284-25

== ENCOUNTER 2022-09-21 16:42 | Emergency (ER) | payer OTHER ==
[2022-09-21 16:52] VITALS: BMI 31.6
[2022-09-21] MEDS ORDERED: MECLIZINE HCL 25 MG TABLET (FP) PO ONE (18:11)
[2022-09-21] MEDS ORDERED: LACTATED RINGERS SOLUTION 1000 ML INFUS.BAG IV ONE (18:11)
[2022-09-21] MEDS ORDERED: METOCLOPRAMIDE HCL INJECTION 10 MG/2 ML VIAL IVPB ONE (18:11)
[2022-09-21] MEDS ORDERED: METOCLOPRAMIDE HCL INJECTION 10 MG/2 ML VIAL ONE (18:17)
[2022-09-21] MEDS ORDERED: MECLIZINE HCL 25 MG TABLET (FP) ONE (18:17)
[2022-09-21 19:05] LABS: BASO % 0.4 % (0-2.0); EOS % 1.2 % (0-4.5); HEMATOCRIT 40.9 % (32.4-45.2); HEMOGLOBIN 13.6 GM/dL (10.7-15.3); LYMPH % 24.8 % (8-40); MCH 29.1 pg (25.7-33.7); MCHC 33.2 g/dl (32.0-36.0); MEAN CELL VOLUME 87.6 fl (80-96); MEAN PLT VOLUME 10.9 fl (7.5-11.1); MONO % 6.8 % (3.8-10.2); NEUT % 66.8 % (42.8-82.8); PLATELET COUNT 207 10^3/uL (134-434); RBC 4.67 M/mm3 (3.60-5.2); RDW 13.6 % (11.6-15.6); WHITE BLOOD COUNT 7.6 K/mm3 (4.0-10.0)
[2022-09-21 19:16] LABS: CALCIUM 9.5 mg/dL (8.5-10.1)
[2022-09-21 19:17] LABS: ALBUMIN 3.9 g/dl (3.4-5.0); BLOOD UREA NITROGEN 13.5 mg/dL (7-18)
[2022-09-21 19:20] LABS: CREATININE 0.7 mg/dL (0.55-1.3)
[2022-09-21 19:21] LABS: BILIRUBIN,TOTAL 0.7 mg/dL (0.2-1); TOT PROT 8.5 g/dl (6.4-8.2)
[2022-09-21 20:34] VITALS: BP 135/78; PULSE 64; RESP 20; TEMP 98.6
== END 2022-09-21 20:59 | disposition home or self-care (01) ==
LOC: JER 16:42
PROC: 3E033GC Introduction of Other Therapeutic Substance into Peripheral Vein, Percutaneous Approach (ICD-10-PCS; principal; 2022-09-21)
DX: R51.9 Headache, unspecified (principal); R42 Dizziness and giddiness; R09.89 Other specified symptoms and signs involving the circulatory and respiratory systems
CPT/HCPCS: 36415; 70360-TC-FY; 71045-TC-FY; 80053; 85025; 93005; 93010; 99285-25

== ENCOUNTER 2022-11-07 17:24 | Emergency (ER) | payer OTHER ==
[2022-11-07 17:47] VITALS: TEMP 98; BMI 31.6
[2022-11-07 19:36] LABS: BASO % 0.2 % (0-2.0); EOS % 2.5 % (0-4.5); HEMATOCRIT 34.4 % (32.4-45.2); HEMOGLOBIN 11.6 GM/dL (10.7-15.3); LYMPH % 28.8 % (8-40); MCH 28.5 pg (25.7-33.7); MCHC 33.6 g/dl (32.0-36.0); MEAN CELL VOLUME 84.9 fl (80-96); MEAN PLT VOLUME 10.6 fl (7.5-11.1); NEUT % 61.5 % (42.8-82.8); PLATELET COUNT 170 10^3/uL (134-434); RBC 4.05 M/mm3 (3.60-5.2); RDW 13.5 % (11.6-15.6); WHITE BLOOD COUNT 7.4 K/mm3 (4.0-10.0)
[2022-11-07 19:44] LABS: INR 1.04 (0.83-1.09); PROTHROMBIN TIME (PATIENT) 12.1 SEC (9.7-13.0)
[2022-11-07 19:47] LABS: ACTIVATED PTT 30.6 SECONDS (25.2-36.5)
[2022-11-07 19:54] LABS: CALCIUM 8.7 mg/dL (8.5-10.1)
[2022-11-07 19:55] LABS: ALBUMIN 3.3 g/dl (3.4-5.0); BLOOD UREA NITROGEN 18.3 mg/dL (7-18)
[2022-11-07 19:58] LABS: CREATININE 0.6 mg/dL (0.55-1.3)
[2022-11-07 19:59] LABS: TOT PROT 7.2 g/dl (6.4-8.2)
[2022-11-07 20:00] LABS: BILIRUBIN,TOTAL 0.3 mg/dL (0.2-1)
[2022-11-07] MEDS ORDERED: FAMOTIDINE 20 MG/50 ML IVPB 20 MG/50 ML MG IVPB ONE ×2 (20:48→20:54)
[2022-11-07 22:34] VITALS: BP 130/76; PULSE 70; RESP 18
== END 2022-11-07 22:34 | disposition home or self-care (01) ==
LOC: JER 17:24
PROC: 3E033GC Introduction of Other Therapeutic Substance into Peripheral Vein, Percutaneous Approach (ICD-10-PCS; principal; 2022-11-07)
DX: R07.89 Other chest pain (principal)
CPT/HCPCS: 36415; 71045-TC-FY; 80053; 84484; 85025; 85610; 85730; 93005; 93010; 99285-25

== ENCOUNTER 2022-12-20 04:32 | Day surgery (SDC) | payer OTHER ==
[2022-12-19 14:28] VITALS: BMI 31.8
[2022-12-20 10:42] VITALS: RESP 20; TEMP 98
[2022-12-20 11:22] VITALS: BP 126/78; PULSE 72
== END 2022-12-20 11:22 | disposition home or self-care (01) ==
LOC: JASU-ENDO 04:32
PROVIDERS: ATTEND Student in an Organized Health Care Education/Training Program
PROC: 0DB78ZX Excision of Stomach, Pylorus, Via Natural or Artificial Opening Endoscopic, Diagnostic (ICD-10-PCS; 2022-12-20)
PROC: 0DB68ZX Excision of Stomach, Via Natural or Artificial Opening Endoscopic, Diagnostic (ICD-10-PCS; 2022-12-20)
PROC: 0DB38ZX Excision of Lower Esophagus, Via Natural or Artificial Opening Endoscopic, Diagnostic (ICD-10-PCS; 2022-12-20)
PROC: 0DB98ZX Excision of Duodenum, Via Natural or Artificial Opening Endoscopic, Diagnostic (ICD-10-PCS; principal; 2022-12-20 10:00)
DX: K29.50 Unspecified chronic gastritis without bleeding (principal); K44.9 Diaphragmatic hernia without obstruction or gangrene; B96.81 Helicobacter pylori [H. pylori] as the cause of diseases classified elsewhere; K20.90 Esophagitis, unspecified without bleeding; I10 Essential (primary) hypertension; J45.909 Unspecified asthma, uncomplicated
CPT/HCPCS: 88305-TC; 88342-TC

== ENCOUNTER 2022-12-25 01:52 | Emergency (ER) | payer OTHER ==
[2022-12-25 02:01] VITALS: BP 119/76; PULSE 71; RESP 18; TEMP 97.7; BMI 32.9
[2022-12-25] MEDS ORDERED: CLARITHROMYCIN 500 MG TABLET (UD) PO ONE (02:41)
[2022-12-25] MEDS ORDERED: MAG HYDROX/AL HYDROX/SIMETH -MYLANTA- ORAL SUSPENSION PO ONE (02:42)
[2022-12-25] MEDS ORDERED: AMOXICILLIN 500 MG CAPSULE (FP) PO ONE (02:42)
[2022-12-25] MEDS ORDERED: AMOX TR/POT CLAV 500MG/125MG TABLETS (FP) ONE (02:44)
[2022-12-25] MEDS ORDERED: MAG HYDROX/AL HYDROX/SIMETH 30 ML UNIT-DOSE CUP ONE (02:44)
[2022-12-25] MEDS ORDERED: AMOXICILLIN 250 MG CAPSULE ONE (02:46)
[2022-12-25] MEDS ORDERED: SUCRALFATE 1 GM TABLET (FP) PO ONE (02:58)
[2022-12-25] MEDS ORDERED: SUCRALFATE 1 GM/10 ML UNIT DOSE CUPS PO ONE (02:59)
[2022-12-25] MEDS ORDERED: SUCRALFATE 1 GM TABLET (FP) ONE (03:03)
== END 2022-12-25 03:36 | disposition home or self-care (01) ==
LOC: JER 01:52
DX: K29.70 Gastritis, unspecified, without bleeding (principal); R10.13 Epigastric pain
CPT/HCPCS: 71046-TC-FY; 99283-25

== ENCOUNTER 2023-02-02 00:49 | Emergency (ER) | payer OTHER ==
[2023-02-02] MEDS ORDERED: MAG HYDROX/AL HYDROX/SIMETH -MYLANTA- ORAL SUSPENSION PO ONE (01:21)
[2023-02-02] MEDS ORDERED: FAMOTIDINE 20 MG/50 ML IVPB 20 MG/50 ML MG IVPB ONE (01:21)
[2023-02-02 01:22] VITALS: BP 148/82; PULSE 74; RESP 18; TEMP 98.2; BMI 33.2
[2023-02-02] MEDS ORDERED: SUCRALFATE 1 GM TABLET (FP) PO ONE (01:22)
[2023-02-02] MEDS ORDERED: FAMOTIDINE 20 MG TABLET PO ONE (01:23)
[2023-02-02] MEDS ORDERED: FAMOTIDINE 20 MG TABLET ONE (01:30)
[2023-02-02] MEDS ORDERED: MAG HYDROX/AL HYDROX/SIMETH 30 ML UNIT-DOSE CUP ONE (01:31)
[2023-02-02] MEDS ORDERED: SUCRALFATE 1 GM TABLET (FP) ONE (01:31)
[2023-02-02 02:13] LABS: BASO % 0.3 % (0-2.0); EOS % 0.6 % (0-4.5); HEMATOCRIT 35.5 % (32.4-45.2); HEMOGLOBIN 11.9 GM/dL (10.7-15.3); LYMPH % 31.3 % (8-40); MCH 28.5 pg (25.7-33.7); MCHC 33.4 g/dl (32.0-36.0); MEAN CELL VOLUME 85.3 fl (80-96); MEAN PLT VOLUME 10.5 fl (7.5-11.1); MONO % 6.8 % (3.8-10.2); PLATELET COUNT 182 10^3/uL (134-434); RBC 4.16 M/mm3 (3.60-5.2); RDW 13.7 % (11.6-15.6); WHITE BLOOD COUNT 8.5 K/mm3 (4.0-10.0)
[2023-02-02 02:32] LABS: POTASSIUM 3.8 mmol/L (3.5-5.1)
[2023-02-02 02:35] LABS: ALBUMIN 3.4 g/dl (3.4-5.0)
[2023-02-02 02:38] LABS: CREATININE 0.7 mg/dL (0.55-1.3)
[2023-02-02 02:40] LABS: BILIRUBIN,TOTAL 0.4 mg/dL (0.2-1); TOT PROT 7.4 g/dl (6.4-8.2)
== END 2023-02-02 04:46 | disposition home or self-care (01) ==
LOC: JER 00:49
DX: R06.02 Shortness of breath (principal); R07.0 Pain in throat; K30 Functional dyspepsia; K29.50 Unspecified chronic gastritis without bleeding; B96.81 Helicobacter pylori [H. pylori] as the cause of diseases classified elsewhere
CPT/HCPCS: 36415; 71045-TC-FY; 80053; 83690; 84484; 85025; 93005; 93010; 99285-25

== ENCOUNTER 2023-03-20 14:26 | Emergency (ER) | payer OTHER ==
[2023-03-20 14:49] VITALS: BP 123/65; PULSE 72; RESP 14; TEMP 98; BMI 33.0
[2023-03-20] MEDS ORDERED: ACETAMINOPHEN 500 MG TABLET (FP) PO ONE (15:53)
[2023-03-20] MEDS ORDERED: ACETAMINOPHEN 325 MG TABLET (FP) ONE (16:31)
[2023-03-20 16:47] LABS: BASO % 0.4 % (0-2.0); EOS % 3.5 % (0-4.5); HEMATOCRIT 35.4 % (32.4-45.2); HEMOGLOBIN 11.9 GM/dL (10.7-15.3); MCH 28.4 pg (25.7-33.7); MCHC 33.5 g/dl (32.0-36.0); MEAN CELL VOLUME 84.8 fl (80-96); MEAN PLT VOLUME 10.3 fl (7.5-11.1); MONO % 8.9 % (3.8-10.2); NEUT % 53.2 % (42.8-82.8); PLATELET COUNT 150 10^3/uL (134-434); RBC 4.18 M/mm3 (3.60-5.2); RDW 13.9 % (11.6-15.6); WHITE BLOOD COUNT 5.9 K/mm3 (4.0-10.0)
[2023-03-20 17:02] LABS: POTASSIUM 3.5 mmol/L (3.5-5.1)
[2023-03-20 17:06] LABS: CALCIUM 8.9 mg/dL (8.5-10.1)
[2023-03-20 17:07] LABS: ALBUMIN 3.3 g/dl (3.4-5.0); BLOOD UREA NITROGEN 15.9 mg/dL (7-18)
[2023-03-20 17:10] LABS: CREATININE 0.9 mg/dL (0.55-1.3)
[2023-03-20 17:13] LABS: BILIRUBIN,TOTAL 0.5 mg/dL (0.2-1); TOT PROT 7.2 g/dl (6.4-8.2)
[2023-03-20 18:30] LABS: PH,URINE 6.5 (5.0-8.0); URINE APPEARANCE CLEAR; URINE BILIRUBIN NEGATIVE (NEGATIVE); URINE COLOR YELLOW; URINE GLUCOSE (UA) NEGATIVE (NEGATIVE); URINE KETONE NEGATIVE (NEGATIVE); URINE LEUK ESTERASE NEGATIVE (NEGATIVE); URINE NITRITE NEGATIVE (NEGATIVE); URINE PROTEIN NEGATIVE (NEGATIVE)
== END 2023-03-20 19:00 | disposition home or self-care (01) ==
LOC: JER 14:26
DX: R35.0 Frequency of micturition (principal); R30.0 Dysuria; R51.9 Headache, unspecified; K59.00 Constipation, unspecified
CPT/HCPCS: 36415; 80053; 81003; 84703; 85025; 87086; 99283-25

== ENCOUNTER 2023-04-21 01:00 | Emergency (ER) | payer OTHER ==
[2023-04-21 01:11] VITALS: BP 129/81; PULSE 74; RESP 19; TEMP 97.7; BMI 32.3
[2023-04-21] MEDS ORDERED: ALBUTEROL SO4 2.5/IPRATROPIUM 0.5 INH SOL 3 ML VIAL.NEB. NEB ONE ×2 (01:41→02:00)
== END 2023-04-21 03:32 | disposition home or self-care (01) ==
LOC: JER 01:00
PROC: 3E0F7GC Introduction of Other Therapeutic Substance into Respiratory Tract, Via Natural or Artificial Opening (ICD-10-PCS; principal; 2023-04-21)
DX: R07.89 Other chest pain (principal); R05.9 Cough, unspecified; J34.89 Other specified disorders of nose and nasal sinuses; R68.2 Dry mouth, unspecified; J45.909 Unspecified asthma, uncomplicated; J06.9 Acute upper respiratory infection, unspecified; Z20.822 Contact with and (suspected) exposure to COVID-19
CPT/HCPCS: 0241U-QW; 71046-TC-FY; 93005; 93010; 99285-25

== ENCOUNTER 2023-04-27 21:02 | Emergency (ER) | payer OTHER ==
[2023-04-27 21:17] VITALS: TEMP 98.2; BMI 33.4
[2023-04-28] MEDS ORDERED: MAG HYDROX/AL HYDROX/SIMETH 30 ML UNIT-DOSE CUP ONE (00:24)
[2023-04-28 01:29] VITALS: BP 130/76; PULSE 80; RESP 18
== END 2023-04-28 01:28 | disposition home or self-care (01) ==
LOC: JER 21:02
DX: R09.89 Other specified symptoms and signs involving the circulatory and respiratory systems (principal); R11.10 Vomiting, unspecified; R13.10 Dysphagia, unspecified
CPT/HCPCS: 70490-TC; 99284-25

== ENCOUNTER 2023-05-20 23:07 | Emergency (ER) | payer OTHER ==
[2023-05-20 23:13] VITALS: BP 126/72; PULSE 77; RESP 18; TEMP 97.8; BMI 32.3
[2023-05-21] MEDS ORDERED: METOCLOPRAMIDE HCL INJECTION 10 MG/2 ML VIAL IVPB ONE (00:58)
[2023-05-21] MEDS ORDERED: LACTATED RINGERS SOLUTION 1000 ML INFUS.BAG IV ONE (00:58)
[2023-05-21] MEDS ORDERED: ACETAMINOPHEN 1000 MG/100 ML BAG IVPB ONE (00:59)
[2023-05-21] MEDS ORDERED: METOCLOPRAMIDE HCL INJECTION 10 MG/2 ML VIAL ONE (01:08)
[2023-05-21] MEDS ORDERED: ACETAMINOPHEN INJECTION 100 ML IVPB ONE (01:08)
[2023-05-21 01:28] LABS: BASO % 0.6 % (0-2.0); EOS % 3.3 % (0-4.5); HEMATOCRIT 35.8 % (32.4-45.2); HEMOGLOBIN 12.2 GM/dL (10.7-15.3); LYMPH % 29.8 % (8-40); MCH 29.2 pg (25.7-33.7); MCHC 34.2 g/dl (32.0-36.0); MEAN CELL VOLUME 85.4 fl (80-96); MEAN PLT VOLUME 10.6 fl (7.5-11.1); MONO % 8.3 % (3.8-10.2); PLATELET COUNT 163 10^3/uL (134-434); RBC 4.19 M/mm3 (3.60-5.2); RDW 14.1 % (11.6-15.6); WHITE BLOOD COUNT 6.1 K/mm3 (4.0-10.0)
[2023-05-21 01:46] LABS: POTASSIUM 3.8 mmol/L (3.5-5.1)
[2023-05-21 01:48] LABS: ALBUMIN 3.4 g/dl (3.4-5.0); BLOOD UREA NITROGEN 10.5 mg/dL (7-18); CALCIUM 8.3 mg/dL (8.5-10.1)
[2023-05-21 01:52] LABS: CREATININE 0.7 mg/dL (0.55-1.3)
[2023-05-21 01:53] LABS: BILIRUBIN,TOTAL 0.4 mg/dL (0.2-1); TOT PROT 7.4 g/dl (6.4-8.2)
== END 2023-05-21 03:17 | disposition home or self-care (01) ==
LOC: JER 23:07
PROC: 3E033NZ Introduction of Analgesics, Hypnotics, Sedatives into Peripheral Vein, Percutaneous Approach (ICD-10-PCS; principal; 2023-05-21)
PROC: 3E033GC Introduction of Other Therapeutic Substance into Peripheral Vein, Percutaneous Approach (ICD-10-PCS; 2023-05-21)
DX: R51.9 Headache, unspecified (principal)
CPT/HCPCS: 36415; 70450-TC; 80053; 84703; 85025; 99284-25

== ENCOUNTER 2023-06-08 22:19 | Emergency (ER) | payer OTHER ==
[2023-06-08 22:28] VITALS: BP 146/81; PULSE 68; RESP 18; TEMP 98.1; BMI 32.9
[2023-06-08] MEDS ORDERED: FAMOTIDINE 20 MG TABLET PO ONE (23:55)
[2023-06-08] MEDS ORDERED: SODIUM CHLORIDE FOR INHALATION 3 ML VIAL.NEB IH ONE (23:55)
[2023-06-08] MEDS ORDERED: LIDOCAINE VISCOUS 2% ORAL/TOP 15 ML UNIT-DOSE CUP ONE (23:58)
[2023-06-08] MEDS ORDERED: FAMOTIDINE 20 MG TABLET ONE (23:59)
[2023-06-09] MEDS: LIDOCAINE VISCOUS 2% ORAL/TOP 15 ML UNIT-DOSE CUP MM ONE ×2 (00:17→00:22)
[2023-06-09] MEDS ORDERED: MAG HYDROX/AL HYDROX/SIMETH 30 ML UNIT-DOSE CUP PO ONE (00:33)
== END 2023-06-09 00:35 | disposition home or self-care (01) ==
LOC: JER 22:19
PROC: 3E0F7GC Introduction of Other Therapeutic Substance into Respiratory Tract, Via Natural or Artificial Opening (ICD-10-PCS; principal; 2023-06-09)
DX: R07.0 Pain in throat (principal); J38.5 Laryngeal spasm; K21.9 Gastro-esophageal reflux disease without esophagitis
CPT/HCPCS: 99283-25

== ENCOUNTER 2023-06-16 06:57 | Emergency (ER) | payer OTHER ==
[2023-06-16 07:36] VITALS: BP 126/79; PULSE 85; RESP 20; TEMP 97.6; BMI 32.9
[2023-06-16] MEDS ORDERED: LIDOCAINE VISCOUS 2% ORAL/TOP 15 ML UNIT-DOSE CUP MM ONE (07:50)
[2023-06-16] MEDS ORDERED: MAG HYDROX/AL HYDROX/SIMETH -MYLANTA- ORAL SUSPENSION PO ONE (07:50)
[2023-06-16] MEDS ORDERED: SODIUM CHLORIDE FOR INHALATION 3 ML VIAL.NEB IH ONE (07:50)
[2023-06-16] MEDS ORDERED: MAG HYDROX/AL HYDROX/SIMETH 30 ML UNIT-DOSE CUP ONE (07:53)
[2023-06-16] MEDS ORDERED: LIDOCAINE VISCOUS 2% ORAL/TOP 15 ML UNIT-DOSE CUP ONE (07:53)
== END 2023-06-16 10:06 | disposition home or self-care (01) ==
LOC: JER 06:57
PROC: 3E0F7GC Introduction of Other Therapeutic Substance into Respiratory Tract, Via Natural or Artificial Opening (ICD-10-PCS; principal; 2023-06-16)
DX: R07.0 Pain in throat (principal); R13.10 Dysphagia, unspecified; K20.90 Esophagitis, unspecified without bleeding
CPT/HCPCS: 36415; 87651; 99283-25

== ENCOUNTER 2023-07-24 20:09 | Emergency (ER) | payer OTHER ==
[2023-07-24 20:16] VITALS: BP 138/84; PULSE 73; RESP 18; TEMP 98; BMI 32.9
[2023-07-24] MEDS ORDERED: MAG HYDROX/AL HYDROX/SIMETH 30 ML UNIT-DOSE CUP PO ONE (20:51)
[2023-07-24] MEDS ORDERED: ACETAMINOPHEN 1000 MG/100 ML BAG IVPB ONE (20:51)
[2023-07-24] MEDS ORDERED: FAMOTIDINE 20 MG/50 ML IVPB 20 MG/50 ML MG IVPB ONE ×2 (20:51→21:14)
[2023-07-24] MEDS ORDERED: ACETAMINOPHEN INJECTION 100 ML IVPB ONE (21:14)
[2023-07-24] MEDS ORDERED: MAG HYDROX/AL HYDROX/SIMETH 30 ML UNIT-DOSE CUP ONE (21:14)
[2023-07-24 21:32] LABS: BASO % 0.3 % (0-2.0); EOS % 2.3 % (0-4.5); HEMATOCRIT 39.6 % (32.4-45.2); LYMPH % 33.8 % (8-40); MCH 28.1 pg (25.7-33.7); MCHC 32.8 g/dl (32.0-36.0); MEAN CELL VOLUME 85.9 fl (80-96); MEAN PLT VOLUME 10.7 fl (7.5-11.1); MONO % 5.6 % (3.8-10.2); PLATELET COUNT 167 10^3/uL (134-434); RDW 13.7 % (11.6-15.6); WHITE BLOOD COUNT 6.4 K/mm3 (4.0-10.0)
[2023-07-24 21:48] LABS: PH,URINE 5.5 (5.0-8.0); URINE APPEARANCE Clear; URINE BILIRUBIN Negative (NEGATIVE); URINE COLOR Yellow; URINE GLUCOSE (UA) Negative (NEGATIVE); URINE KETONE Negative (NEGATIVE); URINE LEUK ESTERASE Negative (NEGATIVE); URINE NITRITE Negative (NEGATIVE); URINE PROTEIN Negative (NEGATIVE); URINE UROBILINOGEN 0.2 mg/dL (0.2-1.0)
[2023-07-24 21:50] LABS: POTASSIUM 3.4 mmol/L (3.5-5.1)
[2023-07-24 21:52] LABS: BLOOD UREA NITROGEN 11.3 mg/dL (7-18); CALCIUM 9.1 mg/dL (8.5-10.1)
[2023-07-24 21:53] LABS: ALBUMIN 3.5 g/dl (3.4-5.0)
[2023-07-24 21:55] LABS: CREATININE 0.7 mg/dL (0.55-1.3)
[2023-07-24 21:57] LABS: BILIRUBIN,TOTAL 0.4 mg/dL (0.2-1); TOT PROT 7.9 g/dl (6.4-8.2)
[2023-07-24 22:28] LABS: EPI CELLS 2.3 /uL (0-25.1); HYALINE CASTS 0 /uL (0-3.1); URINE BACTERIA 105.6 /uL (0-1359); URINE RBC 11.7 /uL (0-23.9); URINE WBC 8.9 /uL (0-25.8)
[2023-07-24] MEDS ORDERED: POTASSIUM CHLORIDE TABS 20 MEQ TABLET.ER (FP) PO ONE ×2 (22:36→22:42)
== END 2023-07-25 01:58 | disposition home or self-care (01) ==
LOC: JER 20:09
PROC: 3E033GC Introduction of Other Therapeutic Substance into Peripheral Vein, Percutaneous Approach (ICD-10-PCS; principal; 2023-07-24)
PROC: 3E033NZ Introduction of Analgesics, Hypnotics, Sedatives into Peripheral Vein, Percutaneous Approach (ICD-10-PCS; 2023-07-24)
DX: R10.9 Unspecified abdominal pain (principal); K29.70 Gastritis, unspecified, without bleeding; K21.9 Gastro-esophageal reflux disease without esophagitis; K80.20 Calculus of gallbladder without cholecystitis without obstruction
CPT/HCPCS: 36415; 71046-TC-FY; 74177-TC; 76705-TC; 80053; 81003; 83690; 84484; 85025; 87086; 93005; 93010; 99285-25; Q9967

== ENCOUNTER 2023-08-15 19:10 | Emergency (ER) | payer OTHER ==
[2023-08-15 19:58] VITALS: BP 129/72; PULSE 75; RESP 18; TEMP 98.2; BMI 32.9
[2023-08-15] MEDS ORDERED: FAMOTIDINE 20 MG TABLET PO ONE (20:36)
[2023-08-15] MEDS ORDERED: LIDOCAINE VISCOUS 2% ORAL/TOP 15 ML UNIT-DOSE CUP MM ONE (20:37)
[2023-08-15] MEDS ORDERED: MAG HYDROX/AL HYDROX/SIMETH 30 ML UNIT-DOSE CUP PO ONE (20:37)
[2023-08-15] MEDS ORDERED: FAMOTIDINE 20 MG TABLET ONE ×2 (20:39→20:42)
[2023-08-15] MEDS ORDERED: MAG HYDROX/AL HYDROX/SIMETH 30 ML UNIT-DOSE CUP ONE (20:39)
[2023-08-15] MEDS ORDERED: LIDOCAINE VISCOUS 2% ORAL/TOP 15 ML UNIT-DOSE CUP ONE (20:40)
== END 2023-08-15 21:01 | disposition home or self-care (01) ==
LOC: JERFT 19:10
DX: K21.00 Gastro-esophageal reflux disease with esophagitis, without bleeding (principal)
CPT/HCPCS: 99283-25

== ENCOUNTER 2023-08-22 00:07 | Emergency (ER) | payer OTHER ==
[2023-08-22 00:15] VITALS: BP 153/83; PULSE 72; RESP 18; TEMP 97.6; BMI 32.9
[2023-08-22] MEDS ORDERED: IBUPROFEN 400 MG TABLET (FP) PO ONE ×2 (01:11→01:55)
[2023-08-22] MEDS ORDERED: ACETAMINOPHEN 500 MG TABLET (FP) PO ONE (01:11)
[2023-08-22] MEDS ORDERED: ACETAMINOPHEN 325 MG TABLET (FP) ONE (01:54)
== END 2023-08-22 02:28 | disposition home or self-care (01) ==
LOC: JER 00:07
DX: M79.645 Pain in left finger(s) (principal); S60.947A Unspecified superficial injury of left little finger, initial encounter; W23.0XXA Caught, crushed, jammed, or pinched between moving objects, initial encounter
CPT/HCPCS: 73140-TC-LT-FY; 99283-25

== ENCOUNTER 2023-08-29 16:00 | Emergency (ER) | payer OTHER ==
[2023-08-29] MEDS ORDERED: ASPIRIN 81 MG CHEWABLE TABLETS PO ONE (16:40)
[2023-08-29 16:50] VITALS: BMI 32.9
[2023-08-29 17:27] LABS: BASO % 0.4 % (0-2.0); EOS % 2.2 % (0-4.5); HEMATOCRIT 39.5 % (32.4-45.2); HEMOGLOBIN 12.8 GM/dL (10.7-15.3); LYMPH % 31.8 % (8-40); MCH 27.9 pg (25.7-33.7); MCHC 32.4 g/dl (32.0-36.0); MEAN PLT VOLUME 10.9 fl (7.5-11.1); NEUT % 58.6 % (42.8-82.8); PLATELET COUNT 171 10^3/uL (134-434); RBC 4.59 M/mm3 (3.60-5.2); WHITE BLOOD COUNT 5.8 K/mm3 (4.0-10.0)
[2023-08-29] MEDS ORDERED: ASPIRIN 81 MG CHEWABLE TABLETS ONE (17:28)
[2023-08-29 17:33] LABS: INR 1.03 (0.83-1.09); PROTHROMBIN TIME (PATIENT) 11.9 SEC (9.7-13.0)
[2023-08-29 17:35] LABS: ACTIVATED PTT 32.7 SECONDS (25.2-36.5)
[2023-08-29 17:53] LABS: POTASSIUM 3.6 mmol/L (3.5-5.1)
[2023-08-29 17:55] LABS: CALCIUM 9.2 mg/dL (8.5-10.1)
[2023-08-29 17:56] LABS: ALBUMIN 3.4 g/dl (3.4-5.0); BLOOD UREA NITROGEN 18.1 mg/dL (7-18)
[2023-08-29 17:59] LABS: CREATININE 0.6 mg/dL (0.55-1.3)
[2023-08-29 18:00] LABS: BILIRUBIN,TOTAL 0.6 mg/dL (0.2-1); TOT PROT 7.6 g/dl (6.4-8.2)
[2023-08-29] MEDS ORDERED: FAMOTIDINE 20 MG/50 ML IVPB 20 MG/50 ML MG IVPB ONE ×2 (18:19→19:06)
[2023-08-29] MEDS ORDERED: MAG HYDROX/AL HYDROX/SIMETH 30 ML UNIT-DOSE CUP PO ONE (18:19)
[2023-08-29] MEDS ORDERED: MAG HYDROX/AL HYDROX/SIMETH 30 ML UNIT-DOSE CUP ONE (19:06)
[2023-08-29 21:03] VITALS: BP 122/72; PULSE 78; RESP 19; TEMP 98.6
== END 2023-08-29 21:03 | disposition home or self-care (01) ==
LOC: JER 16:00
PROC: 3E033GC Introduction of Other Therapeutic Substance into Peripheral Vein, Percutaneous Approach (ICD-10-PCS; principal; 2023-08-29)
DX: R07.2 Precordial pain (principal)
CPT/HCPCS: 36415; 71045-TC-FY; 80053; 82550; 82553; 83735; 84484; 85025; 85610; 85730; 93005; 93010; 99285-25

== ENCOUNTER 2023-10-11 18:19 | Emergency (ER) | payer OTHER ==
[2023-10-11 18:47] VITALS: BP 127/75; PULSE 81; RESP 18; TEMP 98.4; BMI 32.9
[2023-10-11] MEDS ORDERED: ACETAMINOPHEN 325 MG TABLET (FP) ONE (19:39)
[2023-10-11] MEDS ORDERED: ALBUTEROL SO4 2.5/IPRATROPIUM 0.5 INH SOL 3 ML VIAL.NEB. NEB ONE (19:39)
[2023-10-11] MEDS: ACETAMINOPHEN 325 MG TABLET (FP) PO ONE (20:06)
[2023-10-11] MEDS: ALBUTEROL SO4 2.5/IPRATROPIUM 0.5 INH SOL 3 ML VIAL.NEB. NEB ONE (20:07)
[2023-10-11 20:33] LABS: ACTIVATED PTT 30.4 SECONDS (25.2-36.5); INR 0.99 (0.83-1.09); PROTHROMBIN TIME (PATIENT) 11.5 SEC (9.7-13.0)
[2023-10-11 20:33] LABS: BASO % 0.2 % (0-2.0); EOS % 2.8 % (0-4.5); HEMATOCRIT 37.4 % (32.4-45.2); HEMOGLOBIN 12.7 GM/dL (10.7-15.3); MCH 29.4 pg (25.7-33.7); MEAN CELL VOLUME 86.4 fl (80-96); MONO % 6.4 % (3.8-10.2); NEUT % 65.6 % (42.8-82.8); PLATELET COUNT 148 10^3/uL (134-434); RBC 4.32 M/mm3 (3.60-5.2); RDW 14.3 % (11.6-15.6); WHITE BLOOD COUNT 5.3 K/mm3 (4.0-10.0)
[2023-10-11 20:41] LABS: POTASSIUM 5.8 mmol/L (3.5-5.1)
[2023-10-11 20:44] LABS: ALBUMIN 3.4 g/dl (3.4-5.0); BLOOD UREA NITROGEN 13.4 mg/dL (7-18); CALCIUM 8.6 mg/dL (8.5-10.1); MAGNESIUM 2.6 mg/dL (1.8-2.4)
[2023-10-11 20:47] LABS: CREATININE 0.7 mg/dL (0.55-1.3)
[2023-10-11 20:49] LABS: BILIRUBIN,TOTAL 0.8 mg/dL (0.2-1); TOT PROT 7.6 g/dl (6.4-8.2)
[2023-10-11 22:50] LABS: URINE APPEARANCE CLEAR; URINE BILIRUBIN NEGATIVE (NEGATIVE); URINE COLOR YELLOW; URINE GLUCOSE (UA) NEGATIVE (NEGATIVE); URINE KETONE NEGATIVE (NEGATIVE); URINE LEUK ESTERASE NEGATIVE (NEGATIVE); URINE NITRITE NEGATIVE (NEGATIVE); URINE PROTEIN NEGATIVE (NEGATIVE); URINE UROBILINOGEN 0.2 mg/dL (0.2-1.0)
[2023-10-11 23:10] LABS: POTASSIUM 3.7 mmol/L (3.5-5.1)
[2023-10-11 23:13] LABS: ALBUMIN 3.4 g/dl (3.4-5.0); BLOOD UREA NITROGEN 13.6 mg/dL (7-18); CALCIUM 8.5 mg/dL (8.5-10.1)
[2023-10-11 23:16] LABS: CREATININE 0.5 mg/dL (0.55-1.3)
[2023-10-11 23:18] LABS: BILIRUBIN,TOTAL 0.7 mg/dL (0.2-1); TOT PROT 7.4 g/dl (6.4-8.2)
== END 2023-10-12 00:17 | disposition home or self-care (01) ==
LOC: JER 18:19
PROC: 3E0F7GC Introduction of Other Therapeutic Substance into Respiratory Tract, Via Natural or Artificial Opening (ICD-10-PCS; principal; 2023-10-11)
DX: R42 Dizziness and giddiness (principal); R68.83 Chills (without fever); R53.81 Other malaise; R09.81 Nasal congestion; R00.2 Palpitations; B34.9 Viral infection, unspecified; Z20.822 Contact with and (suspected) exposure to COVID-19
CPT/HCPCS: 0241U-QW; 36415; 71046-TC-FY; 80053; 81003; 83735; 84484; 85025; 85610; 85730; 87086; 93005; 93010; 99285-25

== ENCOUNTER 2023-12-29 17:42 | Emergency (ER) | payer OTHER ==
[2023-12-29 17:48] VITALS: BP 121/79; PULSE 66; RESP 18; TEMP 98.1; BMI 32.9
[2023-12-29] MEDS ORDERED: KETOROLAC TROMETHAMINE 30 MG/1 ML VIAL ONE (19:19)
[2023-12-29] MEDS ORDERED: LIDOCAINE 5% TOPICAL PATCH ONE (19:19)
[2023-12-29] MEDS: KETOROLAC TROMETHAMINE 30 MG/1 ML VIAL IM ONE (19:35)
[2023-12-29] MEDS: LIDOCAINE 5% TOPICAL PATCH TP ONE (19:35)
[2023-12-29] MEDS ORDERED: LIDOCAINE PATCH REMOVAL MC SCH (22:00)
== END 2023-12-29 19:56 | disposition home or self-care (01) ==
LOC: JER 17:42
PROC: 3E0233Z Introduction of Anti-inflammatory into Muscle, Percutaneous Approach (ICD-10-PCS; principal; 2023-12-29)
DX: M25.512 Pain in left shoulder (principal); S46.012A Strain of muscle(s) and tendon(s) of the rotator cuff of left shoulder, initial encounter; X50.0XXA Overexertion from strenuous movement or load, initial encounter
CPT/HCPCS: 93005; 93010; 99284-25

== ENCOUNTER 2024-01-09 16:21 | Emergency (ER) | payer OTHER ==
[2024-01-09 16:28] VITALS: BP 149/90; PULSE 79; RESP 18; TEMP 98.5; BMI 32.3
[2024-01-09] MEDS ORDERED: KETOROLAC TROMETHAMINE 15 MG/ML VIAL ONE (17:56)
[2024-01-09] MEDS: KETOROLAC TROMETHAMINE 15 MG/ML VIAL IM ONE (18:00)
== END 2024-01-09 18:23 | disposition home or self-care (01) ==
LOC: JERFT 16:21
PROC: 3E0133Z Introduction of Anti-inflammatory into Subcutaneous Tissue, Percutaneous Approach (ICD-10-PCS; principal; 2024-01-09)
DX: M85.841 Other specified disorders of bone density and structure, right hand (principal); M25.512 Pain in left shoulder; M79.641 Pain in right hand
CPT/HCPCS: 73030-TC-LT-FY; 73110-TC-RT-FY; 73130-TC-RT-FY; 99284-25